=== PATIENT | female | born 1960 | race Caucasian/White ===

== ENCOUNTER 2023-03-29 09:11 | Outpatient (CLI) | payer MEDICARE, SELFPAY ==
--- NOTE | ~2023-03-29 | XR_ITS ---
EXAMINATION: XR abdomen/kub 1V INDICATION: Renal mass TECHNIQUE: Supine view of the abdomen is obtained. COMPARISON: CT, 09/04/2019 FINDINGS: The bowel gas pattern is normal. There is severe lumbar spondylosis and lumbar levoscoliosi s. The visualized lung bases are clear. There is moderate osteoarthritis of the hips. No definite jose al mass is identified although sensitivity on radiographs is low. IMPRESSION: 1. Unremarkable abdominal radiograph. Reviewed, dictated and finalized at location L. ICAL DATA MANAGER
== END 2023-03-29 09:12 | disposition home or self-care (01) ==
LOC: ANHIMG 09:17
PROVIDERS: PCP Physician Assistant; Visit Provider Urology
DX: N28.89 Other specified disorders of kidney and ureter (principal)
CPT/HCPCS: 74018

== ENCOUNTER 2024-06-06 08:17 | Outpatient (CLI) | payer MEDICARE, SELFPAY ==
--- NOTE | ~2024-06-06 | XR_ITS ---
Right Knee Technique: AP, lateral, and sunrise views were obtained. Clinical History: Arthritis Findings: No fracture or dislocation is seen. There is severe degenerative change of the medial rigo rtment with medial compartment narrowing. There is severe degenerative change of the patellofemoral c ompartment. There is moderate degenerative change of the lateral compartment.. Chondrocalcinosis of t he menisci. No joint effusion is seen. Impression: Severe degenerative change, especially in the medial and patellofemoral compartments. Reviewed, dictated and finalized at location M. Impression: Severe degenerative change, especially in the medial and patellofemoral compart ments.
--- OUTSIDE RECORDS SUMMARY | 2024-06-06 08:25 | XMS_ITS | Encounter Summary ---
Author Organization [facility] Facility Care Team Providers Care Mold Breaker Name Role Phone Tania Ware Primary Care Provider [phone] Chris Mcqueen MD Unavailable [phone] [place] MD Unavailable [phone] Encounter Details Date Type Department Care Team (Latest Contact Info) Description 03/30/2018 Orders Only [facility] Provider, MD Miguel [address] [place] [id number] Social History Tobacco Use Types Packs/Day Years Used Date Smoking Tobacco: Never Comments Unknown Sex and Gender Information Value Date Recorded Sex Assigned at Not on file 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 Historical Provider Final Res ult documented in this encounter Visit Diagnoses Not on filedocumented in this encounter Care Teams Mold Breaker Relationship Specialty Start Date End Date Tania Ware PA [address] [place] [address] PCP - General Internal Medicine 06/29/18 Chris Mcqueen MD [address] [place] [address] Referring Physician Bone Health 11/18/22 Aziza Saucedo MD [address] [place] [address] Surgeon Medical Oncology 10/14/23 documented as of this encounter
--- OUTSIDE RECORDS SUMMARY | 2024-06-06 08:26 | XMS_ITS | Referral Summary ---
Author Organization [facility] Address [address] [place] [address] Care Team Providers Care Exchange Operator Name Role Phone Tania Ware Primary Care Provider [phone] Chris Mcqueen MD Unavailable [phone] MarreroAziza rios MD Unavailable [phone] Encounters Date Type Department Care Team Description 04/21/2024 Results Follow-Up [facility] [address] [place] [phone] Tania Ware PA 04/16/2024 7:30 AM CDT Office Visit [facility] Medicine [address] [place] [phone] Tania Ware PA Medicare annual wellness visit, initial (Primary Dx); Mixed hyperlipidemia; Primary hyperparathyroidism; Gastroesophageal reflux disease without esophagitis; Hypertension, essential; Angiomyolipoma of left kidney; Breast cancer screening by mammogram; Need for pneumococcal vaccine; Vitamin D deficiency; Fatigue, unspecified type; BMI 22.0-22.9, adult from Last 3 Months Allergies Active Allergy Reactions Criticality Noted Date Comments Penicillins Unknown High 01/29/2015 As a child Sulfa (Sulfonamide Antibiotics) Rash Medium 03/11 Rash Medications famotidine (PEPCID) 20 mg tablet Take 1 tablet (20 mg total) by mouth 2 (two) times a day Active diphenhydrAMINE -acetaminophen (TYLENOL PM) 25-500 mg tablet Take 1 tablet by mouth nightly Active acetaminophen (TYLENOL) 500 mg tablet Take 1 tablet (500 mg total) by mouth as needed for pain Active amLODIPine (NORVASC) 5 mg tabletIndicatio ns:Hypertension , essential Take 1 tablet (5 mg total) by mouth daily 90 tablet 1 04/16/2024 Active rosuvastatin (CRESTOR) 10 mg tablet Take 1 tablet (10 mg total) by mouth daily 90 tablet 1 04/16/2024 Active meloxicam (MOBIC) 15 mg tablet Take 1 tablet (15 mg total) by mouth daily 90 tablet 1 04/16/2024 Active Active Problems Problem Noted Date Diagnosed Date Fatigue 04/22/2024 Assessment & Plan (04/22/2024 8:33 PM CDT): Probably multifactorial. Check labs and followup to re-evaluate BMI 22.0-22.9, adult 04/16/2024 Assessment & Plan (04/16/2024 7:59 AM CDT): Weight/BMI is in healthy range. Continue healthy lifestyle to maintain. Breast cancer screening by mammogram 04/16/2024 Assessment & Plan (04/22/2024 8:33 PM CDT): Mammogram order provided Need for pneumococcal vaccine 04/16/2024 Assessment & Plan (04/22/2024 8:33 PM CDT): Prevnar 20 updated in the office today Medicare annual wellness visit, initial 04/17/19 25 Assessment & Plan (04/22/2024 8:33 PM CDT): Encouraged healthy lifestyle, good nutrition and exercise. Encouraged Calcium and Vitamin D and weight bearing exercise for bone health. Reviewed immunizations. Reviewed age appropirate screenings. Medicare Wellness Documentation is completed within the chart Primary hyperparathyroidism 03/22/2023 Assessment & Plan (04/22/2024 8:33 PM CDT): Patient with primary hyperparathyroidism. Status post parathyroid excision x3. Calcium levels are stable. Assessment & Plan (11/21/2023 4:20 AM CDT): Status post parathyroidectomy x3. Calcium labs have stabilized. Continue per Dr. Mcqueen Assessment & Plan (08/02/2023 2:27 PM CDT): Patient with history of hyperparathyroidism. She had excision of 3 of the prior thyroid continues to follow with Dr. Mcqueen at [facility] Assessment & Plan (04/17/2023 8:16 PM CDT): Patient is following with bone metabolism hit [facility]. Has parathyroidectomy scheduled with Dr. Hernandez on 04/13. Continue per their management recommendations Mixed hyperlipidemia 05/21/2022 Assessment & Plan (04/22/2024 8:32 PM CDT): Encouraged patient to follow low fat/low chol diet like the Mediterranean diet. Increase good fats in the diet. Increase exercise. Monitor labs as needed. Continue Crestor 10 Assessment & Plan (11/21/2023 4:20 AM CDT): Encouraged patient to follow low fat/low chol diet like the Mediterranean diet. Increase good fats in the diet. Increase exercise. Monitor labs as needed. Continue Crestor 10 Assessment & Plan (08/02/2023 2:27 PM CDT): Encouraged patient to follow low fat/low chol diet like the Mediterranean diet. Increase good fats in the diet. Increase exercise. Monitor labs as needed. Continue Crestor 10 Assessment & Plan (04/17/2023 8:16 PM CDT): Encouraged patient to follow low fat/low chol diet like the Mediterranean diet. Increase good fats in the diet. Increase exercise. Monitor labs as needed. Gastroesophageal reflux disease without esophagi tis 02/06/2021 Assessment & Plan (04/22/2024 8:32 PM CDT): Continue Pepcid 20 mg Assessment & Plan (11/21/2023 4:20 AM CDT): Continue Pepcid 20 symptoms are stable Assessment & Plan (08/02/2023 2:27 PM CDT): Continue famotidine. Assessment & Plan (04/17/2023 8:15 PM CDT): Continue PPI Assessment & Plan (05/14/2022 4:19 PM CDT): Continue Pepcid Assessment & Plan (02/06/2021 11:54 AM HELPDESK TECHNICIAN): Continue Pepcid p.r.n. he OA (osteoarthritis) 02/06/2021 Assessment & Plan (02/06/2021 11:53 AM HELPDESK TECHNICIAN): Continue Mobic p.r.n. Fracture of right wrist 06/09/2020 Arthritis of carpometacarpal (CMC) joint of left thumb 09/24/2019 Arthritis of carpometacarpal (CMC) joint of righ t thumb 09/24/2019 Kidney stone 08/19/2019 Overview (08/19/2019): Continue per Dr. Xavier. Assessment & Plan (08/19/2019 8:49 PM CDT): Continue per Dr. Xavier Angiomyolipoma of left kidney 08/16/2019 Overview (08/01/2023): Incidental finding 03/2019 CT in [place] (kidney stones) 4.1 x 3.2 cm mid left kidney. Plan to repeat screening (Dr. Xavier will order) 03/2021 -- US by Dr Xavier. No significant change in the left kidney mass/probable angiomyolipoma Assessment & Plan (04/22/2024 8:32 PM CDT): Dr. Xavier continues to follow. Patient states she just had a another ultrasound but I am unable to see those results at this point. Patient reports it has grown a bit. Assessment & Plan (05/14/2022 4:18 PM CDT): Incidental finding 03/2019 CT in [place] (kidney stones) 4.1 x 3.2 cm mid left kidney. Plan to repeat screening (Dr. Xavier will order) Unsure if this was done so will try to track down and if has not been done by next visit will consider rechecking imaging for stability Assessment & Plan (08/19/2019 8:48 PM CDT): Incidental finding 03/2019 CT in [place] (kidney stones) 4.1 x 3.2 cm mid left kidney. Plan to repeat screening (Dr. Xavier will order) Hand numbness 02/04/2019 Assessment & Plan (08/19/2019 8:25 PM CDT): Persistent sxs. Didn't respond to cockup splints. Will refer to ortho hand for full workup. Assessment & Plan (02/04/2019 3:05 PM HELPDESK TECHNICIAN): Probable carpal tunnel-- Start with cockup splint. If sxs persist will consider nerve conduction vs referral to hand specialist. Start Mobic Hyperkalemia 09/25/2018 Assessment & Plan (08/02/2023 2:28 PM CDT): Monitor potassium levels as has been recently elevated. Suspect it was due to dietary fruits. Vitamin D deficiency 09/18/2018 Assessment & Plan (04/22/2024 8:32 PM CDT): Supplement Assessment & Plan (05/14/2022 4:17 PM CDT): Patient has history of vitamin-D deficiency but also is having issues with parathyroid. She has been following with Dr. Diaz. Has appointment with bone metabolism to help determine best plan of treatment for parathyroid osteoporosis vitamin-D supplementation. Assessment & Plan (07/31/2021 1:53 PM CDT): Vitamin D level is staying normal at 57 on 07/22/21 - stay off vitamin D. Assessment & Plan (01/29/2021 2:10 PM HELPDESK TECHNICIAN): Patient used to be on 5000 to 0[address]98 international units vitamin D /day She has been off treatment for 6 weeks. Vitamin D level is normal at 58 on 01/22/21 - stay off vitamin D for now. Assessment & Plan (12/15/2020 3:30 PM HELPDESK TECHNICIAN): Patient has been on and off Vitamin D using high daily dose This can contribute to high calcium. - Discontinue vitamin D for now - in the future she may need low dose vitamin D around 1000 international units /day Assessment & Plan (09/18/2018 8:46 AM CDT): Supplement. Pt would like level rechecked Osteopenia 09/18/2018 Assessment & Plan (11/21/2023 4:20 AM CDT): Continue calcium vitamin-D and exercise. Consider repeating DEXA in the next year Assessment & Plan (05/14/2022 4:18 PM CDT): Patient has history of vitamin-D deficiency but also is having issues with parathyroid. She has been following with Dr. Diaz. Has appointment with bone metabolism to help determine best plan of treatment for parathyroid osteoporosis vitamin-D supplementation. Assessment & Plan (07/31/2021 1:53 PM CDT): Patient gives history of Osteopenia She was on Fosamax for about 1 year in 2019 Bone density on 01/29/21 stable Hip -1.7 osteopenia Spine -0.1 normal - repeat bone density in 2-3 years. Assessment & Plan (01/29/2021 2:12 PM HELPDESK TECHNICIAN): Patient gives history of Osteopenia She was on Fosamax for about 1 year in 2019 She had bone density today for follow up Assessment & Plan (08/19/2019 8:32 PM CDT): Encourage calcium, vitamin D and weight bearing exercise to maintain the good bone strength. Continue Fosamax Assessment & Plan (09/18/2018 8:48 AM CDT): Managed by [employer] Dr. Sorenson. On Fosamax Grief 09/15/2018 Assessment & Plan (09/18/2018 8:47 AM CDT): Patient is adjusting. About 9 Months out from her husbands . Situational stress 09/15/2018 Assessment & Plan (02/04/2019 3:03 PM HELPDESK TECHNICIAN): Discussed considering medication---as may be contributing to the slight elevation of bp. Monitor closely as pt not interested in medication at this point. Assessment & Plan (09/18/2018 8:48 AM CDT): Adjusting without medication. Continue to monitor. Hypertension, essential 09/15/2018 Assessment & Plan (04/22/2024 8:32 PM CDT): Bp is stable/in acceptable range for any co-morbidities. Encouraged to limit sodium intake and exercise for weight control. Continue amlodipine 5 Assessment & Plan (11/09/2023 9:26 AM CDT): Bp is stable/in acceptable range for any co-morbidities. Encouraged to limit sodium intake and exercise for weight control. Continue amlodipine 5 Assessment & Plan (08/02/2023 2:26 PM CDT): Bp is stable/in acceptable range for any co-morbidities. Encouraged to limit sodium intake and exercise for weight control. Continue amlodipine 5 Assessment & Plan (04/17/2023 8:16 PM CDT): Bp is stable/in acceptable range for any co-morbidities. Encouraged to limit sodium intake and exercise for weight control. BP is still elevated. Increase the amlodipine to 5 mg daily and call in a couple of weeks with results Assessment & Plan (05/14/2022 4:42 PM CDT): This is a significant, separately identifiable problem that was evaluated and managed on the same day as the wellness exam BP is still upper normal. Will have her stop the Norvasc 2.5 and increase to 5 mg daily. She may take 2 of the 2.5 mg tablets until they are exhausted then she will be able to feel 1 of the 5 mg tablets at the pharmacy with a new prescription. Encouraged patient to call in 1-2 weeks with home bp readings. Assessment & Plan (02/06/2021 11:52 AM HELPDESK TECHNICIAN): Bp is stable/in acceptable range for any co-morbidities. Encouraged to limit sodium intake and exercise for weight control. Stable with amlodipine 2.5 mg daily Assessment & Plan (01/04/2021 10:03 PM HELPDESK TECHNICIAN): Bp is stable/in acceptable range for any co-morbidities. Encouraged to limit sodium intake and exercise for weight control. Start amlodipine 2.5 mg 1 daily. Insert drug follow-up in 2-3 weeks to recheck blood pressure. Assessment & Plan (08/19/2019 8:42 PM CDT): Stable. Continue to monitor. Assessment & Plan (02/04/2019 3:02 PM HELPDESK TECHNICIAN): bp is still upper normal but not as high has her home readings. Recommend to bring in her monitor to callibrate to make sure readings are correct. Will not start medication at this point but will monitor closely. Assessment & Plan (09/18/2018 8:47 AM CDT): Stable/normalized. No treatment needed Family history of breast cancer 04/04/2018 Assessment & Plan (08/02/2023 2:27 PM CDT): Patient's twin sister was just diagnosed with triple negative breast cancer. Her mother has also had history of breast cancer. Patient has had a lumpectomy many years ago but negative mammogram since. She is enquiring about evaluation by breast specialists and or genetics to determine her breast cancer risk and options. She would like to see Dr. Aziza Saucedo [place]. Will place referral Primary osteoarthritis of right knee 11/11/2016 Resolved Problems Problem Noted Date Diagnosed Date Resolved Date Encounter for screening mamm ogram for breast cancer 01/04/2024 04/16/2024 Breast cancer screening, high risk patient 01/04/2024 04/16/2024 Chronic pain of right knee 11/20/2023 0 04/22/2024 Assessment & Plan (11/21/2023 4:21 AM CDT): Check x-rays. Continue with the Mobic. Will follow-up pending x-ray results Right foot pain 11/20/2023 04/22/2024 Assessment & Plan (11/21/2023 4:21 AM CDT): Persistent pain on the 5th toe and bony area that continues to remain painful. Will check an x-ray but encouraged follow-up with Podiatry. They will be able to address her thickened toenails. BMI 23.0-23.9, adult 08/02/2023 025 Assessment & Plan (11/09/2023 7:37 AM CDT): Weight/BMI is in healthy range. Continue healthy lifestyle to maintain. Assessment & Plan (08/02/2023 7:49 AM CDT): Weight/BMI is in healthy range. Continue healthy lifestyle to maintain. Welcome to Medicare preventive visit 04/17/2023 08/02/2023 Assessment & Plan (04/17/2023 8:16 PM CDT): Encouraged healthy lifestyle, good nutrition and exercise. Encouraged Calcium and Vitamin D and weight bearing exercise for bone health. Reviewed immunizations. Reviewed age appropirate screenings. Medicare Wellness Documentation is completed within the chart BMI 22.0-22.9, adult 03/31/2023 024 Assessment & Plan (03/31/2023 7:51 AM HELPDESK TECHNICIAN): Weight/BMI is in healthy range. Continue healthy lifestyle to maintain. BMI 21.0-21.9, adult 05/14/2022 024 Assessment & Plan (05/14/2022 9:54 AM CDT): Weight/BMI is in healthy range. Continue healthy lifestyle to maintain. Fatigue 05/14/2022 08/02/2023 Assessment & Plan (04/17/2023 8:16 PM CDT): Probably multifactorial. Check labs and followup to re-evaluate Assessment & Plan (05/14/2022 4:19 PM CDT): Probably multifactorial. Check labs and followup to re-evaluate Diabetes mellitus screening 05/14/2022 04/17/2023 Assessment & Plan (05/14/2022 4:19 PM CDT): Check labs Lipid screening 05/14/2022 04/17/2023 Assessment & Plan (05/14/2022 4:19 PM CDT): Check labs Left hand pain 11/30/2021 04/22/2024 Otitis of right ear 06/15/2021 05/15/19 23 Assessment & Plan (06/15/2021 9:04 PM CDT): Start antibiotic, antihistamine (Claritin OR Zyrtec), Mucinex 12hour and Steroid nasal spray (Flonase). Push fluids. Rest. Supportive care. If sxs worsen or don\'t improve, pt is to followup in the office. Stop using the sweat oil and peroxide. Recheck eras in 3-4 weeks to make sure hearing is back to normal. Annual physical exam 02/06/2021 Assessment & Plan (08/02/2023 2:28 PM CDT): Encouraged healthy lifestyle, good nutrition and exercise. Encouraged Calcium and Vitamin D and weight bearing exercise for bone health. Reviewed immunizations Reviewed age appropirate screenings. Assessment & Plan (05/14/2022 4:19 PM CDT): Encouraged healthy lifestyle, good nutrition and exercise. Encouraged Calcium and Vitamin D and weight bearing exercise for bone health. Reviewed immunizations Reviewed age appropirate screenings. Assessment & Plan (02/06/2021 11:52 AM HELPDESK TECHNICIAN): Encouraged healthy lifestyle, good nutrition and exercise. Encouraged Calcium and Vitamin D and weight bearing exercise for bone health. Reviewed immunizations Reviewed age appropirate screenings. Breast cancer screening by mammogram 02/06/2021 05/14/2022 Assessment & Plan (02/06/2021 11:52 AM HELPDESK TECHNICIAN): Mammogram order provided Leg cramps 01/04/2021 04/22/2024 Assessment & Plan (01/04/2021 10:03 PM HELPDESK TECHNICIAN): Check labs BMI 22.0-22.9, adult 12/16/2020 023 Assessment & Plan (12/16/2020 7:35 AM HELPDESK TECHNICIAN): Weight/BMI is in healthy range. Continue healthy lifestyle to maintain. Hypercalcemia 12/15/2020 04/22/2024 Assessment & Plan (05/14/2022 4:18 PM CDT): Patient has history of vitamin-D deficiency but also is having issues with parathyroid. She has been following with Dr. Diaz. Has appointment with bone metabolism to help determine best plan of treatment for parathyroid osteoporosis vitamin-D supplementation. Assessment & Plan (07/31/2021 1:55 PM CDT): History of mild hypercalcemia in 2019 Calcium was found to be high at 11.1 on 11/14/20 Labs on 01/22/21 Calcium 10.3 PTH normal at 32 Normal urine calcium of 186 Normal Vitamin D of 58 Repeat labs on 07/22/21 Calcium normal at 10.0 PTH high at 67 With normal GFR and vitamin D This could be mild early hyperparathyroidism Plan: Labs reviewed and explained to patient No indication for treatment at this popint We will monitor calcium levels. Repeat labs before next visit. Assessment & Plan (01/29/2021 2:09 PM HELPDESK TECHNICIAN): History of mild hypercalcemia in 2019 Calcium was found to be high at 11.1 on 11/14/20 Patient was taken off supplements mainly vitamin D Labs on 01/22/21 Calcium 10.3 PTH normal at 32 Normal urine calcium of 186 Normal Vitamin D of 58 Plan: Labs reviewed and explained to patient Patient To stay off calcium and vitamin D We will monitor calcium levels. Repeat labs before next visit. Assessment & Plan (01/04/2021 10:03 PM HELPDESK TECHNICIAN): Continue to monitor per Dr. Diaz Assessment & Plan (12/15/2020 3:28 PM HELPDESK TECHNICIAN): History of mild hypercalcemia in 2019 Calcium was found to be high at 11.1 on 11/14/20 Repeat labs on 11/17/20 Calcium 10.4 GFR 94 Vitamin D 59 PTH of 49 This may represent mild primary hyperparathyroidism, aggravated by excess intake of vitamin D. Plan: Possible diagnosis explained to patient Discontinue vitamin D We will recheck labs in 6 weeks before next visit. Heartburn 12/15/2020 04/22/2024 Assessment & Plan (01/04/2021 10:03 PM HELPDESK TECHNICIAN): Continue the Pepcid Assessment & Plan (12/15/2020 3:32 PM HELPDESK TECHNICIAN): Chronic- related to food, but can be aggravated by hypercalcemia - continue diet - continue Pepcid as needed. Avulsion fracture of metatarsal bone 06/09/2020 11/09/2023 Closed fracture of right distal radius 04/28/2020 11/09/2023 Pain of left calf 04/20/2020 04/22/2024 Assessment & Plan (04/20/2020 1:58 PM CDT): DVT vs musculoskeletal vs compartment syndrome (less likely as no injury) other etiology Will send her for STAT hold and call venous Doppler. She was sent directly to imaging from the office. Discuss treatment options if this is a DVT including AC. ADDENDUM: Recvd verbal results. No DVT. Reviewed with patient that this is probably musculoskeletal but if sxs worsen or pain increases she needs to call back to re-evaluate. Continue MOBIC. Reviewed stretching exercises. If sxs persist, could consider PT. She voices understanding. BMI 24.0-24.9, adult 04/16/2020 021 Assessment & Plan (04/16/2020 7:50 AM HELPDESK TECHNICIAN): Weight/BMI is in healthy range. Continue healthy lifestyle to maintain. Primary osteoarthritis of right hand 10/24/2019 04/22/2024 Right wrist pain 09/24/2019 04/22/2024 Left wrist pain 09/24/2019 04/22/2024 Left carpal tunnel syndrome 09/24/2019 04/22/2024 Need for Tdap vaccination 08/19/2019 Assessment & Plan (08/19/2019 8:47 PM CDT): Updated in office today BMI 23.0-23.9, adult 09/18/2018 021 Assessment & Plan (08/19/2019 8:42 PM CDT): Weight/BMI is in healthy range. Continue healthy lifestyle to maintain. Assessment & Plan (01/29/2019 8:37 AM HELPDESK TECHNICIAN): Weight/BMI is in healthy range. Continue healthy lifestyle to maintain. Assessment & Plan (09/18/2018 7:59 AM CDT): Weight/BMI is in healthy range. Continue healthy lifestyle to maintain. Other fatigue 09/18/2018 02/04/2019 Assessment & Plan (09/18/2018 8:48 AM CDT): Check labs Lipid screening 09/18/2018 02/04/2019 Assessment & Plan (09/18/2018 8:48 AM CDT): Check labs Diabetes mellitus screening 09/18/2018 02/04/2019 Assessment & Plan (09/18/2018 8:47 AM CDT): Check labs Colon cancer screening 09/18/201802/06 Assessment & Plan (09/18/2018 8:47 AM CDT): cologuard order sent Annual physical exam 09/18/2018 019 Assessment & Plan (09/18/2018 8:46 AM CDT): Encouraged healthy lifestyle, good nutrition and exercise. Encouraged Calcium and Vitamin D and weight bearing exercise for bone health. Reviewed immunizations Reviewed age appropirate screenings. Complete Shingrix Need for shingles vaccine 09/18/2018 Assessment & Plan (09/18/2018 8:50 AM CDT): Updated in office. Fibrocystic change of breast, right 04/11/2018 01/04/2024 Current long-term use of pos tmenopausal hormone replacement therapy 03/30/2018 08/02/2023 Abnormal finding on mammography 01/28/2015 11/09/2023 Immunizations Immunization Administration Dates Next Due Influenza, Quadrivalent, Rec ombinant, Egg Free, Preservative Free, Intramuscular 12/05/2019,12/18/2017 Influenza, Quadrivalent, Spl it, Preservative Free, Intradermal 11/17/2015 Influenza, Quadrivalent, Spl it, Preservative Free, Intramuscular 11/30/2022,11/13/2018 Influenza, Trivalent, High D ose, Split, Preservative Free, Intramuscular 12/07/2023 Influenza, Trivalent, IM (MDV) 01/06/2014,2011 Influenza, Trivalent, Preser vative Free, Intramuscular 11/20/2016 Influenza, Unspecified 03/10/2022(Deferr ed: Patient Refused),03/10/2021(Deferred: Patient Refused),11/19/2020,12/05/2019, Yenni Linares ([facility]) SARS-CoV-2 Vaccination 01/02/2021, 04/11/2020 [facility] Sars-Cov-2 Bivalent V accination (12+ YRS) 11/13/2021 Pneumococcal Conjugate Pcv20 04/16/2024 Tdap 08/16/2019 ZOSTER Recombinant 09/18/2018,07/13/2018 Social History Tobacco Use Types Packs/Day Years Used Date Smoking Tobacco: Former Cigarettes 0.3 6.9 0 03/21/1973 - 1980 Passive Smoke Exposure: Past Smokeless Tobacco: Former Tobacco Cessation:Counseling Given: Not Answered Alcohol Use Standard Drinks/Week Comments Yes 0 (1 standard drink = 0.6 oz pur e alcohol) AUDIT-C Answer Date Recorded Q1: How often do you have a drink containing alcohol? 4 or more times a week 01/04/2024 Q2: How many drinks containi ng alcohol do you have on a typical day when you are drinking? 1 or 2 Q3: How often do you have si x or more drinks on one occasion? Less than monthly 01/04/2024 PHQ-2 Answer Date Recorded PHQ-2 Total Score (If total score is 3 or more points, staff should administer the PHQ-9) 0 04/16/2024 Personal Safety Answer Date Recorded Have you ever been in or are you currently in a harmful physical or emotional relationship or is someone making you feel afraid or unsafe? Denies 04/14/2023 Comments No Sex and Gender Information Value Date Recorded Sex Assigned at Not on file Legal Sex Female 5:45 AM HELPDESK TECHNICIAN Gender Identity Female 12/08/2020 6:21 AM CDT Sexual Orientation Straight 12/08/2020 6: 21 AM CDT Occupation Industry Job Start Date Job End Date Retired Not on file Not on file Not on file Last Filed Vital Signs Vital Sign Reading Time Taken Comments Blood Pressure 128/84 04/16/2024 8:20 AM CDT Pulse 61 04/16/2024 7:51 AM CDT Temperature 36.1 C (97 F) 02/10/2024 10:21 AM HELPDESK TECHNICIAN Respiratory Rate 16 02/10/2024 10:2 1 AM HELPDESK TECHNICIAN Oxygen Saturation 96% 04/16/2024 7:51 AM CDT Inhaled Oxygen Concentration - - Weight 46.1 kg (101 lb 11.2 oz) 04/16/2024 7:51 AM CDT Height 142.2 cm (4' 8 ) 04/16/2024 7:51 AM CDT Body Mass Index 22.8 04/16/2024 7:51 AM CDT Plan of Treatment Not on file Medical Devices Implanted Type Area Clinical Nursing Coordinator Device Identifier Shelf Expiration Date Model / Serial / Lot Knee Replacement Knee Pins And Plates Foot Pins And Plates Wrist [employer] Compression Ft 2.5mm 18mm Compression Self Tap Cannulated Hex 1.5 [id number] - [id number] Implanted:Qty: 1 on 12/22/2021 by Nathan Castillo MD at [facility] Left: Middle Finger [employer] [id number] / / Procedures Procedure Name Priority Date/Time Associated Diagnosis Comments VITAMIN B12 Routine 04/18/2024 6:04 AM CDT Vitamin D deficiency LIPID PANEL Routine 04/18/2024 6:04 AM CDT Mixed hyperlipidemia COMPREHENSIVE METABOLIC PANEL Routine 04/18/2024 6:04 AM CDT Mixed hyperlipidemia CBC WITH AUTO DIFFERENTIAL Routine 04/18/2024 6:04 AM CDT Fatigue, unspecified type TSH Routine 04/18/2024 6:04 AM CDT Fatigue, unspecified type VITAMIN D 25 HYDROXY Routine 04/18/2024 6:04 AM CDT Vitamin D deficiency HM MAMMOGRAPHY Routine 06/22/2023 1:59 PM CDT DEXA TBS AXIAL SKELETON BONE DENSITY 1 OR MORE SITES Schedule Routine, Read Routine (OP Routine) 11/01/2022 12:18 PM CDT Osteopenia, unspecified location HM COLONOSCOPY Routine 12/04/2021 from Last 3 Months or Most Recently Relevant to Health Maintenance Results * CBC with auto differential (04/18/2024 6:04 AM CDT) WBC 4.7 3.8 - 10.8 Thousand/u L [facility] RBC, POC 4.11 3.80 - 5.10 Million/uL [facility] Hgb 13.0 11.7 - 15.5 g/dL [facility] Hct 39.7 35.0 - 45.0 % [facility] MCV 96.6 80.0 - 100.0 fL [facility] MCH 31.6 27.0 - 33.0 pg [facility] MCHC 32.7 32.0 - 36.0 g/dL [facility] Comment: For adults, a slight decrease in the calculated MCHC value (in the range of 30 to 32 g/dL) is most likely not clinically significant; however, it should be interpreted with caution in correlation with other red cell parameters and the patient's clinical condition. Rdw 12.3 11.0 - 15.0 % [facility] Platelets 265 140 - 400 Thousand/u L [facility] MPV 11.1 7.5 - 12.5 fL [facility] Neutrophils, abs 1,795 1,500 - 7,800 cells/uL [facility] Lymphocytes, abs 2,153 850 - 3,900 cells/uL [facility] Monocyte abs 489 200 - 950 cells/uL [facility] Eosinophils, abs 193 15 - 500 cells/uL [facility] Basophils, abs 71 0 - 200 cells/uL [facility] Neutrophils 38.2 % [facility] Lymphocyte pct 45.8 % [facility] Monocytes 10.4 % [facility] Eosinophils 4.1 % [facility] Basophils 1.5 % [facility] Blood 04/18/2024 6:04 AM CDT 04/18/2024 6:04 AM CDT us Tania DOMINGUEZ LAB BLOOD ORDERABLES Final Result [facility] [address] [place] [address] * Vitamin D 25 hydroxy (04/18/2024 6:04 AM CDT) Pathologist [facility] Vitamin D 25-OH 34 30 - 100 ng/mL [facility] Comment: Vitamin D Status 25-OH Vitamin D: Deficiency: <20 ng/mL Insufficiency: 20 - 29 ng/mL Optimal: > or = 30 ng/mL For 25-OH Vitamin D testing on patients on D2-supplementation and patients for whom quantitation of D2 and D3 fractions is required, the QuestAssureD(TM) 25-OH VIT D, (D2,D3), LC/MS/MS is recommended: order code 20563 (patients >2yrs). See Note 1 Note 1 For additional information, please refer to http://education.Tradegecko/faq/RPE797 (This link is being provided for informational/ educational purposes only.) Blood 04/18/2024 6:04 AM CDT 04/18/2024 6:04 AM CDT Tania DOMINGUEZ LAB BLOOD ORDERABLES Final Result Performing Organization Address [facility] Co de Phone Number [facility] [address] [place] [address] * TSH (04/18/2024 6:04 AM CDT) TSH 2.83 0.40 - 4.50 mIU/L [facility] Blood 04/18/2024 6:04 AM CDT 04/18/2024 6:04 AM CDT Tania DOMINGUEZ LAB BLOOD ORDERABLES Final Result Performing Organization Address [facility] de Phone Number [facility] [address] [place] [address] * Vitamin B12 (04/18/2024 6:04 AM CDT) Vitamin B12 466 200 - 1,100 pg/mL [facility] Blood 04/18/2024 6:04 AM CDT 04/18/2024 6:04 AM CDT Tania DOMINGUEZ LAB BLOOD ORDERABLES Final Result Performing Organization Address [facility] Co de Phone Number [facility] [address] [place] [address] * Lipid panel (04/18/2024 6:04 AM CDT) Cholesterol 183 <200 mg/dL [facility] HDL 82 > OR = 50 mg/dL [facility] Triglycerides 67 <150 mg/dL [facility] LDL 86 mg/dL (calc) [facility] Comment: Reference range: <100 Desirable range <100 mg/dL for primary prevention; <70 mg/dL for patients with CHD or diabetic patients with > or = 2 CHD risk factors. LDL-C is now calculated using the Russell calculation, which is a validated novel method providing better accuracy than the Friedewald equation in the estimation of LDL-C. Martir MAURO et al. SAMANTHA. 2013;310(19): 3642-4544 (http://education.Tradegecko/faq/MHP693) Chol/HDL ratio 2.2 <5.0 (calc) [facility] Non-HDL, (LDL+VLDL) 101 <130 mg/dL (calc) [facility] Comment: For patients with diabetes plus 1 major ASCVD risk factor, treating to a non-HDL-C goal of <100 mg/dL (LDL-C of <70 mg/dL) is considered a therapeutic option. Blood 04/18/2024 6:04 AM CDT 04/18/2024 6:04 AM CDT Tania DOMINGUEZ LAB BLOOD ORDERABLES Final Result [facility] [address] [address] [place] [address] * Comprehensive metabolic panel (04/18/2024 6:04 AM CDT) Glucose 86 65 - 99 mg/dL [facility] Comment: Fasting reference interval BUN 14 7 - 25 mg/dL [facility] Creatinine 0.71 0.50 - 1.05 mg/dL [facility] eGFR 94 > OR = 60 mL/min/1.7 3m2 [facility] BUN/creat ratio SEE NOTE: 6 - 22 (calc) [facility] Comment: Not Reported: BUN and Creatinine are within reference range. Sodium 141 135 - 146 mmol/L [facility] Potassium, pl 4.6 3.5 - 5.3 mmol/L [facility] Chloride 105 98 - 110 mmol/L [facility] CO2 28 20 - 32 mmol/L [facility] Calcium 9.0 8.6 - 10.4 mg/dL [facility] Protein, sr 6.2 6.1 - 8.1 g/dL [facility] Albumin 4.2 3.6 - 5.1 g/dL [facility] GLOBULIN 2.0 1.9 - 3.7 g/dL (calc) [facility] Alb/glob ratio 2.1 1.0 - 2.5 (calc) [facility] Bilirubin, total 0.6 0.2 - 1.2 mg/dL [facility] Alk phos 57 37 - 153 U/L [facility] AST 19 10 - 35 U/L [facility] ALT (SGPT) 16 6 - 29 U/L [facility] Blood 04/18/2024 6:04 AM CDT 04/18/2024 6:04 AM CDT Tania DOMINGUEZ LAB BLOOD ORDERABLES Final Result [facility] [address] [facility] [place] [address] * MAMMOGRAPHY (06/22/2023 1:59 PM CDT) Mammography Normal Impressions Pretty Browning MA - 06/22/2023 1:59 PM CDT Recommend routine screening in one year. BI-RADS Category 2: Benign findings Historical Provider [facility] Edited Result - Final * Dexa TBS Axial Skeleton Bone Density 1 or more sites (11/01/2022 12:18 PM CDT) Anatomical Region Laterality Modality Wrist, Body N/A Radiographic Jaqueline ging Narrative 11/01/2022 1:56 PM CDT Patient Name: Azalia Henley Date of : 1960 Date of scan: 11/01/2022 Bone mineral density was performed on a Amadix Discovery Densitometer. Based on machine cross-calibration and precision studies the least significant changes of this densitometer is 0.024 g/cm2 at the spine, 0.020 g/cm2 at the total proximal femur, and 0.014g/cm2 at the forearm. HISTORY: This is a 62 y.o. postmenopausal female with a history of low bone mass and vitamin D deficiency. She reports that she has quit smoking. She has quit using smokeless tobacco. Previously treated with alendronate (Fosamax) and current complaint of neck pain and leg pain. INDICATIONS: Menopause status, history of prior wrist fracture, and history of low bone mass. FINDINGS: BONE MINERAL DENSITY OF THE LUMBAR SPINE Bone Mineral Density (BMD) of the lumbar spine was measured from L1-L4 and the average density was calculated to be 1.042 gm/cm2. This corresponds to a T-score (standard deviations from the mean of young adults) of 0.0. There is no previous study available for comparison. BONE MINERAL DENSITY OF THE PROXIMAL FEMUR Bone Mineral Density (BMD) of the left hip total was found to be 0.816 gm/cm2. This corresponds to a T-score standard deviations from the mean of young adults of -1.0. Femoral neck is 0.662 gm/cm2 with a T-score (standard deviations from the mean of young adults) of -1.7. There is no previous study available for comparison. BONE MINERAL DENSITY OF THE FOREARM Bone Mineral density (BMD) of the left proximal 1/3 of the radius measures 0.558 gm/cm2. This corresponds to a T-score (standard deviations from the mean of young adults) of -2.3. There is no previous study available for comparison. A forearm bone density study was performed in addition to the routine study because of severe degenerative disease and severe scoliosis. SUMMARY: Bone mineral density shows evidence of low bone mass at the proximal femur and forearm and moderately increased fracture risk (Osteopenia). The lumbar spine Trabecular Bone Score is 1.505 which suggests normal bone microarchitecture, compared to the general population. Final decisions regarding diagnostic or therapeutic recommendations should include BMD, TBS, additional clinical risk factors as well the clinical context of the patient. Please see attached TBS results for further details. ADDITIONAL COMMENTS: Postmenopausal Women and Men Over 50: Diagnostic criteria: Osteoporosis: BMD at or below -2.5 T-score; Osteopenia (low bone mass): BMD between -1.0 and -2.5 T-score. If the patient has a history of a fragility fracture, a fracture that occurred with trauma equivalent to a fall from a standing position or less, then the diagnosis is osteoporosis regardless of bone density. The history and data sections of the bone mineral density scan were prepared by Shantelle Lucero (R)(CBDT) who is accredited by the International Society of Clinical Densitometry. The overall patient assessment and scan interpretation were performed by Chris Mcqueen M.D. who is certified by the International Society of Clinical Densitometry. [id number] us Chris Mcqueen MD IMG DXA PROCEDURES Final Result * HM COLONOSCOPY (12/04/2021) us Bruce Phan MD HEALTH MAINTENANCE Edited Res ult - Final from Last 3 Months or Most Recently Relevant to Health Maintenance Insurance T MEDICARE GOLD AET[employer] MEDICARE GOLD [facility] MEDICARE [facility] Advance Directives For more information, please contact: [phone] * Full Code (Latest Code Status on File) Date Activated Date Inactivated Comments 04/14/2023 12:48 PM 04/15/2023 4:05 PM Care Teams Exchange Operator Relationship Specialty Start Date End Date Tania Ware PA [address] [place] [address] PCP - General Internal Medicine 06/29/18 Chris Mcqueen MD [address] [facility] [address] [place] [address] Referring Physician Bone Health 11/18/22 Aziza Saucedo MD [address] [place] [address] Surgeon Medical Oncology 10/14/23
--- OUTSIDE RECORDS SUMMARY | 2024-06-06 08:26 | XMS_ITS | Encounter Summary ---
Author Organization [facility] Address [address] [place] [address] Phone Care Team Providers Care Software Tools Engineer Name Role Phone Tania Ware Primary Care Provider [phone] Chris Mcqueen MD Unavailable [phone] Aziza Saucedo MD Unavailable [phone] Encounter Details Date Type Department Care Team (Late st Contact Info) Description 03/16/2022 Orders Only [facility] Scanning, Provider Social History Tobacco Use Types Packs/Day Years Used Date Smoking Tobacco: Former Smokeless Tobacco: Former Alcohol Use Standard Drinks/Week Comments Yes 0 (1 standard drink = 0.6 oz pur e alcohol) AUDIT-C Answer Date Recorded Q1: How often do you have a drink containing alc ohol? 2-3 times a week 12/22/2021 Q2: How many drinks containi ng alcohol do you have on a typical day when you are drinking? 1 or 2 12/22/2021 Q3: How often do you have si x or more drinks on one occasion? 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 Not on file Not on file documented as of this encounter Plan of Treatment Not on file documented as of this encounter Procedures Procedure Name Priority Date/Time Associated Diagnosis Comments SCAN - RADIOLOGY/IMAGING 03/16/2022 documented in this encounter Results * SCAN - RADIOLOGY/IMAGING (03/16/2022) Anatomical Region Laterality Modality Other us Provider Scanning Final Result documented in this encounter Visit Diagnoses Not on filedocumented in this encounter Care Teams Software Tools Engineer Relationship Specialty Start Date End Date Tania Ware PA [address] [place] [address] PCP - General Internal Medicine 06/29/18 Chris Mcqueen MD [address] [place] [address] Referring Physician Bone Health 11/18/22 Aziza Saucedo MD [address] [place] [address] Surgeon Medical Oncology 10/14/23 documented as of this encounter
--- OUTSIDE RECORDS SUMMARY | 2024-06-06 08:26 | XMS_ITS | Encounter Summary ---
Author Organization [facility] Care Team Providers Care Candy Decorator Name Role Phone Tania Ware Primary Care Provider [phone] Chris Mcqueen MD Unavailable [phone] ReftonAziza rios MD Unavailable Encounter Details Date Type Department Care Team (Latest Contact Info) Description 04/11/2018 Orders Only [facility] Provider, MD Miguel [address] [place] [address] Social History Tobacco Use Types Packs/Day Years Used Date Smoking Tobacco: Never Comments Unknown Sex and Gender Information Value Date Recorded Sex Assigned at Not on file Legal Sex Female 5:45 AM MEAT BLENDER Gender Identity Female 12/08/2020 6:21 AM CDT Sexual Orientation Straight 12/08/2020 6: 21 AM CDT documented as of this encounter Plan of Treatment Not on file documented as of this encounter Procedures Procedure Name Priority Date/Time Associated Diagnosis Comments PROCEDURE - RESULT 04/12/2018 12 :00 AM MEAT BLENDER documented in this encounter Results * PROCEDURE - RESULT (04/12/2018 12:00 AM MEAT BLENDER) Narrative 04/12/2018 12:00 AM MEAT BLENDER Ordered by an unspecified provider. Historical Provider Final Res ult documented in this encounter Visit Diagnoses Not on filedocumented in this encounter Care Teams Candy Decorator Relationship Specialty Start Date End Date Tania Ware PA [address] [place] [address] PCP - General Internal Medicine 06/29/18 Chris Mcqueen MD [address] [place] [address] Referring Physician Bone Health 11/18/22 Aziza Saucedo MD [address] [place] [address] Surgeon Medical Oncology 10/14/23 documented as of this encounter
--- OUTSIDE RECORDS SUMMARY | 2024-06-06 08:26 | XMS_ITS | Clinical Summary ---
Author Organization [facility] Address [address] [place] [address] Care Team Providers Care Information Coder Name Role Phone Tania Ware PA-C Primary Care Provider [phone] Allergies Active Allergy Reactions Criticality Noted Date Comments Penicillins Unknown,Rash Low 01/29/2015 Sulfa (Sulfonamide Antibiotics) Unknown,Rash Low Medications YUVAFEM 10 mcg tablet 9 Active alendronate (FOSAMAX) 70 mg tablet 8 Active alendronate (FOSAMAX) 70 mg tablet 8 Active IMVEXXY MAINTENANCE PACK 10 mcg Insert INSERT 1 VAGINALLY TWO TIMES PER WEEK 9 9 Active estradiol (IMVEXXY STARTER PACK) 10 mcg insert, dose pack INSERT ONCE CAPSULE VAGINALLY ONCE DAILY FOR 2 WEEKS THEN USE TWICE A WEEK THEREAFTER FOR MAINTENANCE 9 Active IMVEXXY STARTER PACK 10 mcg insert, dose pack INSERT ONCE CAPSULE VAGINALLY ONCE DAILY FOR 2 WEEKS THEN USE TWICE A WEEK THEREAFTER FOR MAINTENANCE 0 9 Active meloxicam (MOBIC) 7.5 mg tablet 7.5 mg. 7 Active Cholecalciferol, Vitamin D3, 10,000 unit Capsule 10,000 Units. Active Active Problems Problem Noted Date Diagnosed Date Fibrocystic change of breast, right 04/11/2018 Family history of breast cancer 04/04/2018 Current long-term use of pos tmenopausal hormone replacement therapy 03/30/2018 Resolved Problems Problem Noted Date Diagnosed Date Resolved Date Abnormal mammogram of right breast 03/30/2018 05/12/2018 Sign and symptom in breast 03/30/2018 0 04/11/2018 Abnormal ultrasound of breast 03/30/2018 04/11/2018 Social History Tobacco Use Types Packs/Day Years Used Date Smoking Tobacco: Former Cigarettes 0.5 6 0 07/08/1974 - 07/08/1980 Smokeless Tobacco: Never Alcohol Use Standard Drinks/Week Comments Yes 2 (1 standard drink = 0.6 oz pur e alcohol) Comments No Sex and Gender Information Value Date Recorded Sex Assigned at Not on file Legal Sex Female 3:31 PM JEEP MECHANIC Gender Identity Not on file Sexual Orientation Not on file Last Filed Vital Signs Vital Sign Reading Time Taken Comments Blood Pressure 128/74 10/12/2018 9:24 AM CDT Pulse 76 10/12/2018 9:24 AM CDT Temperature 36.7 C (98 F) 10/12/2018 9:24 AM CDT Respiratory Rate - - Oxygen Saturation 97% 10/12/2018 9:24 AM CDT Inhaled Oxygen Concentration - - Weight 50 kg (110 lb 4.8 oz) 10/12/2018 9:24 AM CDT Height 148.6 cm (4' 10.5 ) 10/12/2018 9:24 AM CD T Body Mass Index 22.66 10/12/2018 9:24 AM CDT Plan of Treatment Health Maintenance Due Date Last Done Comments DTAP/TDAP/TD VACCINES (1 - Tdap) 1977 COLORECTAL SCREENING 2003 Colorectal Cancer Screening 2003 FIT-DNA Q 3 years 2003 FIT/FOBT Q 1 year 2003 Flex Sig/CT Colonography Q 5 years 2003 PNEUMOCOCCAL VACCINE 50+ YEA RS (1 of 1 - PCV) 2008 ZOSTER VACCINE (1 of 2) 2008 BREAST CANCER SCREENING 02/23/2019 02/23/19 19, 02/18/2016, 02/11/2016, Additional history exists OSTEOPOROSIS SCREENING 2023 INFLUENZA VACCINE (#1) 2023 11/17/2015 RSV VACCINE (60+ or ) (1 - 1-dose 75+ series) 2033 Procedures Procedure Name Priority Date/Time Associated Diagnosis Comments MAMMO SCREENING BILAT Routine 02/23/2018 from Last 3 Months or Most Recently Relevant to Health Maintenance Results * MAMMO SCREENING BILAT (02/23/2018) Anatomical Region Laterality Modality Breast Bilateral Mammography us Abstract Provider MAMMO ORDERABLES Final Result from Last 3 Months or Most Recently Relevant to Health Maintenance Insurance [facility] BLUE ACCESS CHOICE Care Teams Information Coder Relationship Specialty Start Date End Date Tania Ware PA-C [address] [facility] [address] [place] [address] PCP - General Physician Dialysis Chief Equipment Technician 03/30/18
--- OUTSIDE RECORDS SUMMARY | 2024-06-06 08:26 | XMS_ITS | Encounter Summary ---
Author Organization [facility] Address [address] [place] [address] Phone Care Team Providers Care Tube Cleaner Name Role Phone Tania Ware Primary Care Provider [phone] Chris Mcqueen MD Unavailable [phone] [place] FordAziza rios MD Unavailable [phone] Encounter Details Date Type Department Care Team (Late st Contact Info) Description 03/22/2023 Documentation [facility] [address] [facility] [address] [place] [address] [place] [address] Eduard Singer, B.A. Social History Tobacco Use Types Packs/Day Years Used Date Smoking Tobacco: Former Smokeless Tobacco: Former Alcohol Use Standard Drinks/Week Comments Yes 0 (1 standard drink = 0.6 oz pur e alcohol) AUDIT-C Answer Date Recorded Q1: How often do you have a drink containing alcohol? 4 or more times a week 03/25/2023 Q2: How many drinks containi ng alcohol do you have on a typical day when you are drinking? 1 or 2 Q3: How often do you have si x or more drinks on one occasion? 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 4 or more times a week 03/25/2023 3:52 PM Sasha Ochoa RN Q2: How many drinks containing alcohol do you have on a typical day when you are drinking? 1 or 2 03/25/2023 3:52 PM Dana Ochoa RN Q3: How often do you have six or more drinks on one occasion? Never 03/25/2023 3:52 PM Dana Ochoa RN documented as of this encounter Plan of Treatment Not on file documented as of this encounter Visit Diagnoses Not on filedocumented in this encounter Care Teams Tube Cleaner Relationship Specialty Start Date End Date Tania Ware PA [address] [place] [address] PCP - General Internal Medicine 06/29/18 Chris Mcqueen MD [address] [place] [address] Referring Physician [facility] 11/18/22 Aziza Saucedo MD [address] [place] [address] Surgeon Medical Oncology 10/14/23 documented as of this encounter
--- OUTSIDE RECORDS SUMMARY | 2024-06-06 08:26 | XMS_ITS | Encounter Summary ---
Author Organization [facility] Address [address] [place] [address] Care Team Providers Care Surety Bond Agent Name Role Phone Tania Ware Primary Care Provider [phone] Chris Mcqueen MD Unavailable [phone] [place] MD Unavailable [phone] Encounter Details Date Type Department Care Team (Late st Contact Info) Description 04/21/2024 Results Follow-Up [facility] Medical [facility] Family Medicine [address] [place] [address] Tania Ware PA [address] [place] [address] Social History Tobacco Use Types Packs/Day Years Used Date Smoking Tobacco: Former Cigarettes 0.3 6.9 0 03/21/1973 - 1980 Passive Smoke Exposure: Past Smokeless Tobacco: Former Alcohol Use Standard Drinks/Week [...] on file Legal Sex Female 5:45 AM WAITER/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 BUFFET Gender Identity Female 12/08/2020 6:21 AM CDT Sexual Orientation Straight 12/08/2020 6: 21 AM CDT Occupation Industry Job Start Date Job End Date Retired Not on file Not on file Not on file documented as of this encounter Plan of Treatment Not on file documented as of this encounter Visit Diagnoses Not on filedocumented in this encounter Care Teams Surety Bond Agent Relationship Specialty Start Date End Date Tania Ware PA [address] [place] [address] PCP - General Internal Medicine 06/29/18 Chris Mcqueen MD [address] [place] [address] Referring Physician Bone Health 11/18/22 Aziza Saucedo MD [address] [place] [address] Surgeon Medical Oncology 10/14/23 documented as of this encounter
--- OUTSIDE RECORDS SUMMARY | 2024-06-06 08:26 | XMS_ITS | Clinical Summary ---
Author Organization [facility] Address [address] [place] [address] Care Team Providers Care Business Insight And Analytics Manager Name Role Phone Tania Ware Primary Care Provider [phone] Chris Mcqueen MD Unavailable [phone] SherylAziza MD Unavailable [phone] Allergies Active Allergy Reactions Criticality Noted Date [...] today Medicare annual wellness visit, initial 04/17/19 Assessment & Plan (04/22/2024 8:33 PM CDT): [...] continues to follow with Dr. Mcqueen at [facility] Assessment & Plan (04/17/2023 8:16 PM CDT): Patient is following with bone metabolism hit [facility]. Has parathyroidectomy scheduled with Dr. Hernandez on [...] Pepcid Assessment & Plan (02/06/2021 11:54 AM READING INTERVENTIONIST): Continue Pepcid p.r.n. he OA (osteoarthritis) 02/06/2021 Assessment & Plan (02/06/2021 11:53 AM READING INTERVENTIONIST): Continue Isaias reina. Fracture of right wrist 06/09/2020 Arthritis of carpometacarpal (CMC) joint of left thumb 09/24/2019 Arthritis of carpometacarpal (CMC) joint of righ t thumb 09/24/2019 Kidney stone 08/19/2019 Overview (08/19/2019): Continue per Dr. Xavier. Assessment & Plan (08/19/2019 8:49 PM CDT): Continue per Dr. Xavier Angiomyolipoma of left kidney 08/16/2019 Overview (08/01/2023): Incidental finding 03/2019 CT in [place] (kidney stones) 4.1 x 3.2 cm mid [...] PM CDT): Incidental finding 03/2019 CT in [place] (kidney stones) 4.1 x 3.2 cm mid left kidney. Plan to repeat screening (Dr. Xavier will order) Unsure if this was done so will try to track down and if has not been done by next visit will consider rechecking imaging for stability Assessment & Plan (08/19/2019 8:48 PM CDT): Incidental finding 03/2019 CT in [place] (kidney stones) 4.1 x 3.2 cm mid left kidney. Plan to repeat screening (Dr. Xavier will order) Hand numbness 02/04/2019 Assessment & Plan (08/19/2019 8:25 PM CDT): Persistent sxs. Didn't respond to cockup splints. Will refer to ortho hand for full workup. Assessment & Plan (02/04/2019 3:05 PM READING INTERVENTIONIST): Probable carpal tunnel-- Start with cockup splint. [...] D. Assessment & Plan (01/29/2021 2:10 PM READING INTERVENTIONIST): Patient used to be on 5000 to 26413 international units vitamin D /day She has been off treatment for 6 weeks. Vitamin D level is normal at 58 on 01/22/21 - stay off vitamin D for now. Assessment & Plan (12/15/2020 3:30 PM READING INTERVENTIONIST): Patient has been on and off Vitamin [...] years. Assessment & Plan (01/29/2021 2:12 PM READING INTERVENTIONIST): Patient gives history of Osteopenia She was on Fosamax for about 1 year in 2019 She had bone density today for follow up Assessment & Plan (08/19/2019 8:32 PM CDT): Encourage calcium, vitamin D and weight bearing exercise to maintain the good bone strength. Continue Fosamax Assessment & Plan (09/18/2018 8:48 AM CDT): Managed by ETL SOFTWARE ENGINEER Dr. Sorenson. On Fosamax Grief 09/15/2018 Assessment & Plan (09/18/2018 8:47 AM CDT): Patient is adjusting. About 9 Months out from her husbands . Situational stress 09/15/2018 Assessment & Plan (02/04/2019 3:03 PM READING INTERVENTIONIST): Discussed considering medication---as may be contributing to [...] readings. Assessment & Plan (02/06/2021 11:52 AM READING INTERVENTIONIST): Bp is stable/in acceptable range for any co-morbidities. Encouraged to limit sodium intake and exercise for weight control. Stable with amlodipine 2.5 mg daily Assessment & Plan (01/04/2021 10:03 PM READING INTERVENTIONIST): Bp is stable/in acceptable range for any co-morbidities. Encouraged to limit sodium intake and exercise for weight control. Start amlodipine 2.5 mg 1 daily. Insert drug follow-up in 2-3 weeks to recheck blood pressure. Assessment & Plan (08/19/2019 8:42 PM CDT): Stable. Continue to monitor. Assessment & Plan (02/04/2019 3:02 PM READING INTERVENTIONIST): bp is still upper normal but not [...] 024 Assessment & Plan (03/31/2023 7:51 AM READING INTERVENTIONIST): Weight/BMI is in healthy range. Continue healthy [...] 04/22/2024 Otitis of right ear 06/15/2021 05/15/19 Assessment & Plan (06/15/2021 9:04 PM CDT): [...] screenings. Assessment & Plan (02/06/2021 11:52 AM READING INTERVENTIONIST): Encouraged healthy lifestyle, good nutrition and exercise. Encouraged Calcium and Vitamin D and weight bearing exercise for bone health. Reviewed immunizations Reviewed age appropirate screenings. Breast cancer screening by mammogram 02/06/2021 05/14/2022 Assessment & Plan (02/06/2021 11:52 AM READING INTERVENTIONIST): Mammogram order provided Leg cramps 01/04/2021 04/22/2024 Assessment & Plan (01/04/2021 10:03 PM READING INTERVENTIONIST): Check labs BMI 22.0-22.9, adult 12/16/2020 023 Assessment & Plan (12/16/2020 7:35 AM READING INTERVENTIONIST): Weight/BMI is in healthy range. Continue healthy [...] visit. Assessment & Plan (01/29/2021 2:09 PM READING INTERVENTIONIST): History of mild hypercalcemia in 2019 Calcium [...] visit. Assessment & Plan (01/04/2021 10:03 PM READING INTERVENTIONIST): Continue to monitor per Dr. Diaz Assessment & Plan (12/15/2020 3:28 PM READING INTERVENTIONIST): History of mild hypercalcemia in 2019 Calcium [...] 04/22/2024 Assessment & Plan (01/04/2021 10:03 PM READING INTERVENTIONIST): Continue the Pepcid Assessment & Plan (12/15/2020 3:32 PM READING INTERVENTIONIST): Chronic- related to food, but can be [...] 021 Assessment & Plan (04/16/2020 7:50 AM READING INTERVENTIONIST): Weight/BMI is in healthy range. Continue healthy [...] maintain. Assessment & Plan (01/29/2019 8:37 AM READING INTERVENTIONIST): Weight/BMI is in healthy range. Continue healthy [...] 08/02/2023 Abnormal finding on mammography 01/28/2015 11/09/2023 Encounters Date Type Department Care Team Description 04/21/2024 Results Follow-Up [address] [place] [id number] Tania Ware PA 04/16/2024 7:30 AM CDT Office Visit [facility] [address] [place] [address] Tania Ware PA Medicare annual wellness visit, initial (Primary Dx); Mixed hyperlipidemia; Primary hyperparathyroidism; Gastroesophageal reflux disease without esophagitis; Hypertension, essential; Angiomyolipoma of left kidney; Breast cancer screening by mammogram; Need for pneumococcal vaccine; Vitamin D deficiency; Fatigue, unspecified type; BMI 22.0-22.9, adult from Last 3 Months Immunizations Immunization Administration Dates Next Due Influenza, [...] Yenni Linares (J&J) SARS-CoV-2 Vaccination 01/02/2021, 04/11/2020 Go Try It On Sars-Cov-2 Bivalent V accination (12+ YRS) 11/13/2021 Pneumococcal Conjugate Pcv20 04/16/2024 Tdap 08/16/2019 ZOSTER Recombinant 09/18/2018,07/13/2018 Surgical History Surgery Date Site/Laterality Comments REPLACEMENT TOTAL KNEE 02/07/2006 - 02/06/2007 Left ROTATOR CUFF REPAIR 02/07/2006 - 02/06/2007 Right HAND SURGERY 11/13/2019 Bilateral rt long finger dip fusion and lt ctr FOOT FRACTURE SURGERY 01/31/2020 Right WRIST FRACTURE SURGERY 05/06/2020 Right VAGINAL DELIVERY X2 ARTHRODESIS 12/22/2021 Left LEFT LONG FINGER DIP JOINT ARTHRODESIS COLONOSCOPY last one in 2022 FRACTURE SURGERY 01/31/2020 and 05/01/2020 JOINT REPLACEMENT 01/2007 PARATHYROIDECTOMY 04/08/2023 - 05/08/2023 Medical History Medical History Date Comments Encounter for other orthoped ic aftercare Orthopedic aftercare - (Adde d by TW Conv) GERD (gastroesophageal reflu x disease) Chronic pain disorder OSTEOARTHR ITIS Hypertension, essential Arthritis 25 years Kidney stone had one 03/2019 Hyperthyroidism Hypercholesteremia Family History Medical History Relation Name Comments COPD Father Efraín Odom Diabetes Father Efraín Odom Heart disease Father Efraín Odom Hyperlipidemia Father Efraín Odom Hypertension Father Efraín Odom Lung cancer Father Efraín Odom Obesity Father Efraín Odom Pancreatic cancer Maternal Grandfather Arthritis Maternal Grandmother Gretta Duarte Breast cancer Mother Elza Odom Family hist ory of malignant neoplasm of breast - (Added by TW Conv)/Adenocarcinoma of breast - (Added by TW Conv) Depression Mother Elza Odom Obesity Mother Elza Odom Thyroid disease Mother Elza Odom Breast cancer Mother's Sister BRCA1 Negative Sister Frances BRCA2 Negative Sister Frances Triple negative breast cancer (HCC) Sister Frances identical twin Relation Name Status Comments Father Efraín Odom Maternal Grandfather Maternal Grandmother Gretta Duarte Mother Elza Odom Mother's Sister Alive Sister Frances Alive Social History Tobacco Use Types Packs/Day Years [...] on file Legal Sex Female 5:45 AM READING INTERVENTIONIST Gender Identity Female 12/08/2020 6:21 AM CDT Sexual Orientation Straight 12/08/2020 6: 21 AM CDT Occupation Industry Job Start Date Job End Date Retired Not on file Not on file Not on file Obstetrics History Last Filed Vital Signs Vital Sign Reading Time Taken Comments Blood Pressure 128/84 04/16/2024 8:20 AM CDT Pulse 61 04/16/2024 7:51 AM CDT Temperature 36.1 C (97 F) 02/10/2024 10:21 AM READING INTERVENTIONIST Respiratory Rate 16 02/10/2024 10:2 1 AM READING INTERVENTIONIST Oxygen Saturation 96% 04/16/2024 7:51 AM CDT Inhaled Oxygen Concentration - - Weight 46.1 kg (101 lb 11.2 oz) 04/16/2024 7:51 AM CDT Height 142.2 cm (4' 8 ) 04/16/2024 7:51 AM CDT Body Mass Index 22.8 04/16/2024 7:51 AM CDT Plan of Treatment Health Maintenance Due Date Last Done Comments Hepatitis C Screening 1960 Hepatitis B Screening 1978 Covid-19 Vaccine (2023-03 5 season) 2023 11/13/2021, 01/02/2021, 04/11/2020 Breast Cancer Screening-Mammogram 06/21/2024 06/22/2023, 04/20/2022, 03/09/2021, Additional history exists Osteoporosis Screening-Bone Density Scan 11/01/2024 11/01/2022, 01/29/2021 Depression Screening 04/16/2025 04/16/2024, 11/09/2023, 08/02/2023, Additional history exists Fall Risk Assessment 04/16/2025 04/16/2024, 08/02/2023, 04/15/2023, Additional history exists Well Visit 65+ 04/16/2025 04/16/2024, 07/09, 03/31/2023, Additional history exists DTaP/Tdap/Td Vaccine (2 - Td or Tdap) 08/15/2029 08/16/2019 Colon Cancer Screening-Colonoscopy 12/05/2031 12/04/2021 Zoster Vaccine Completed 09/18/2018, 07/13/2018 Colon Cancer Screening-DNA Stool Discontinued 12/04/2021, 11/04/2021, 10/08/2018, Additional history exists Influenza Vaccine Completed 12/07/2023, , 11/19/2020, Additional history exists Pneumococcal vaccine 65+ Completed 04/16/2024 Medical Devices Implanted Type Area Solar Development Engineer Device Identifier Shelf Expiration Date Model / Serial / Lot Knee Replacement Knee Pins And Plates Foot Pins And Plates Wrist [employer] Compression Ft 2.5mm 18mm Compression Self Tap Cannulated Hex 1.5 [id number] - [id number] Implanted:Qty: 1 on 12/22/2021 by Nathan Castillo MD at [facility] Left: Middle Finger [employer] [id number] [...] BLOOD ORDERABLES Final Result Performing Organization Address [facility] Co de Phone Number [facility] [address] [place] [address] * Vitamin D 25 hydroxy (04/18/2024 6:04 AM CDT) [facility] Vitamin D 25-OH 34 30 - 100 ng/mL [facility] Comment: Vitamin D Status 25-OH Vitamin D: Deficiency: <20 ng/mL Insufficiency: 20 - 29 ng/mL Optimal: > or = 30 ng/mL For 25-OH Vitamin D testing on patients on D2-supplementation and patients for whom quantitation of D2 and D3 fractions is required, the QuestAssureD(TM) 25-OH VIT D, (D2,D3), LC/MS/MS is recommended: order code 40765 (patients >2yrs). See Note 1 Note 1 For additional information, please refer to http://education.GeoOptics/faq/EVZ986 (This link is being provided for informational/ educational purposes only.) Blood 04/18/2024 6:04 AM CDT 04/18/2024 6:04 AM CDT Tania DOMINGUEZ LAB BLOOD ORDERABLES Final Result Performing Organization Address [facility] Co de Phone Number [facility] [address] [place] [address] * TSH (04/18/2024 6:04 AM CDT) [facility] TSH 2.83 0.40 - 4.50 mIU/L [facility] Blood 04/18/2024 6:04 AM CDT 04/18/2024 6:04 AM CDT Tania DOMINGUEZ LAB BLOOD ORDERABLES Final Result Performing Organization Address [facility] Co de Phone Number [facility] [address] [place] [address] * Vitamin B12 (04/18/2024 6:04 AM CDT) Pathologist [facility] Vitamin B12 466 200 - 1,100 pg/mL [facility] Blood 04/18/2024 6:04 AM CDT 04/18/2024 6:04 AM CDT Tania DOMINGUEZ LAB BLOOD ORDERABLES Final Result Performing Organization Address [facility] de Phone Number [facility] [address] [place] [address] * Lipid panel (04/18/2024 6:04 AM CDT) Pathologist [facility] Cholesterol 183 <200 mg/dL [facility] [...] LDL-C. Martir MAURO et al. SAMANTHA. 2013;310(19): 1440-7140 (http://education.RehabDev.[employer]/faq/DYB327) Chol/HDL ratio 2.2 <5.0 (calc) [facility] Non-HDL, (LDL+VLDL) 101 <130 mg/dL (calc) [facility] Comment: For patients with diabetes plus 1 major ASCVD risk factor, treating to a non-HDL-C goal of <100 mg/dL (LDL-C of <70 mg/dL) is considered a therapeutic option. Blood 04/18/2024 6:04 AM CDT 04/18/2024 6:04 AM CDT Tania DOMINGUEZ LAB BLOOD ORDERABLES Final Result [facility] [address] [facility] [place] [address] * Comprehensive metabolic panel (04/18/2024 6:04 AM CDT) Glucose 86 65 - 99 mg/dL [facility] Comment: Fasting reference interval BUN 14 7 - 25 mg/dL [facility] Creatinine 0.71 0.50 - 1.05 mg/dL [facility] eGFR 94 > OR = 60 mL/min/1.7 3m2 [facility] BUN/creat ratio SEE NOTE: 6 (calc) [facility] Comment: Not Reported: [...] LAB BLOOD ORDERABLES Final Result [facility] [address] [facility] [place] [address] * MAMMOGRAPHY (06/22/2023 1:59 PM CDT) Mammography Normal Impressions Pretty Browning MA - 06/22/2023 1:59 PM CDT Recommend routine screening in one year. BI-RADS Category 2: Benign findings Historical Provider HEALTH MAINTENANCE Edited Result - Final * Dexa TBS Axial Skeleton Bone Density 1 or more sites (11/01/2022 12:18 PM CDT) Anatomical Region Laterality Modality Wrist, Body N/A Radiographic Jaqueline ging Narrative 11/01/2022 1:56 PM CDT Patient Name: Azalia Henley Date of : 1960 Date of scan: 11/01/2022 Bone mineral density was performed on a [employer] Discovery Densitometer. Based on machine cross-calibration and [...] by the International Society of Clinical Densitometry. [id number] us Chris Mcqueen MD IMG DXA PROCEDURES Final Result * HM COLONOSCOPY (12/04/2021) us Bruce Phan MD HEALTH MAINTENANCE Edited Res ult - Final from Last 3 Months or Most Recently Relevant to Health Maintenance Insurance AETNA MEDICARE GOLD AETNA MEDICARE GOLD AETNA MEDICARE GOLD Advance Directives For more information, please contact: [phone] * Full Code (Latest Code Status on File) Date Activated Date Inactivated Comments 04/14/2023 12:48 PM 04/15/2023 4:05 PM Care Teams Business Insight And Analytics Manager Relationship Specialty Start Date End Date Tania Ware PA [address] [place] [address] PCP - General Internal Medicine 06/29/18 Chris Mcqueen MD [address] [place] [address] Referring Physician Bone Health 11/18/22 Aziza Saucedo MD [address] [place] [address] Surgeon Medical Oncology 10/14/23
== END 2024-06-06 08:18 | disposition home or self-care (01) ==
PROVIDERS: PCP Physician Assistant; Visit Provider Orthopaedic Surgery
DX: M17.11 Unilateral primary osteoarthritis, right knee (principal)
CPT/HCPCS: 73564

== ENCOUNTER 2024-08-03 10:38 | Outpatient (CLI) | payer MEDICARE, SELFPAY ==
[2024-08-03 11:07] LABS: Hematocrit 40.8 % (37.0-47.0); Hemoglobin 13.1 g/dL (12.0-15.0)
--- NOTE | 2024-08-03 11:09 | ECG_ITS ---
Test Date: 2024-08-03 11:16:43 Measurements Intervals [place] Rate: 62 P: 32 VA: 131 QRS: 16 QRSD: 85 T: 15 QT: 405 QTc: 413 Interpretive Statements SINUS RHYTHM MINIMAL Q WAVES- HIGH LATERAL LEADS BORDERLINE ST ABNORMALITY- ANTEROLAT/INF LEADS BASELINE ARTIFACT- I, II, III, AVR, AVL, AVF, V1-V6 BORDERLINE ECG No previous ECG available for comparison Electronically Signed On 08-03-2024 11:31:46 CDT by Guy Lara D.O.
[2024-08-03 11:19] LABS: Albumin Level 4.4 g/dL (3.5-5.1); Estimated Glomerular Filt Rate > 60; Glucose 87 mg/dL (65-110)
== END 2024-08-03 10:39 | disposition home or self-care (01) ==
PROVIDERS: PCP Physician Assistant; Visit Provider Orthopaedic Surgery
DX: E78.5 Hyperlipidemia, unspecified (principal); M17.11 Unilateral primary osteoarthritis, right knee
CPT/HCPCS: 36415; 82040; 82565; 82947; 85014; 85018; 93005

== ENCOUNTER 2024-10-09 09:29 | Outpatient (CLI) | payer MEDICARE, SELFPAY ==
--- NOTE | ~2024-10-09 | CT_ITS ---
EXAMINATION: CT abdomen wo/w con DATE: 10/09/2024 09:57 INDICATION: Left renal mass TECHNIQUE: Computed tomography (CT) of the abdomen and pelvis was performed without and with intravenous contrast. The dose-length product was 269.47 mGy- cm. Automated exposure control and iterative reconstruction technique were employed. COMPARISON: CT dated 09/04/2019 FINDINGS: There is bilateral atelectasis/scarring of the lung bases. No focal consolidation. Heart size normal. There is atherosclerosis of the aorta. There are multiple liver cysts. The spleen, pancreas, adrenal glands are unremarkable. There is a right renal cysts. Nonobstructive bowel gas pattern with moderate colonic fecal loading. There is a mass of the left kidney containing macroscopic fat measuring 3.5 cm greatest dimension, consistent with benign angiomyolipoma. There is moderate-severe lower thoracic and lumbar spondylosis with scoliosis. IMPRESSION: 1. No significant change to benign-appearing left renal angiomyolipoma compared with 09/04/2019. Reviewed, dictated and finalized at location O.
--- OUTSIDE RECORDS SUMMARY | 2024-10-09 09:45 | XMS_ITS | Clinical Summary ---
Author Organization [facility] Address [address] [place] [address] Care Team Providers Care Pipe Fitter Helper Name Role Phone Tania Ware PA-C Primary Care Provider [phone] Allergies Active Allergy Reactions Criticality Noted Date [...] on file Legal Sex Female 3:31 PM OBSTETRIC ANAESTHETIST Gender Identity Not on file Sexual Orientation [...] 9:24 AM CDT Height 148.6 cm (4' 10.5) 10/12/2018 9:24 AM CD T Body Mass [...] exists OSTEOPOROSIS SCREENING 2023 INFLUENZA VACCINE (#1) 2024 11/17/2015 RSV VACCINE (60+ or ) (1 [...] Most Recently Relevant to Health Maintenance Insurance [facility] BLUE ACCESS CHOICE Care Teams Pipe Fitter Helper Relationship Specialty Start Date End Date Tania Ware PA-C [address] [place] [address] PCP - General Physician Tool Design Drafter 03/30/18
--- OUTSIDE RECORDS SUMMARY | 2024-10-09 09:45 | XMS_ITS | Encounter Summary ---
Author Organization [facility] Address [address] [place] [address] Phone Care Team Providers Care Shop Hand Name Role Phone Tania Ware Primary Care Provider [phone] Chris Mcqueen MD Unavailable [phone] KingsvilleAziza rios MD Unavailable [phone] Encounter Details Date Type Department Care Team (Late st Contact Info) Description 03/16/2022 Orders Only [facility] Scanning, Provider Social History Tobacco [...] on file Legal Sex Female 5:45 AM THERMOSTAT REPAIRER Gender Identity Female 12/08/2020 6:21 AM CDT Sexual Orientation Straight 12/08/2020 6: 21 AM CDT 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
--- OUTSIDE RECORDS SUMMARY | 2024-10-09 09:45 | XMS_ITS | Encounter Summary ---
Author Organization [facility] Care Team Providers Care Extrusion Press Supervisor Name Role Phone Tania Ware Primary Care Provider [phone] Chris Mcqueen MD Unavailable [phone] SherylAziza MD Unavailable [phone] Encounter Details Date Type Department Care Team (Latest Contact Info) Description 03/30/2018 Orders Only [facility] ProviderMiguel MD [address] [place] [address] Social History Tobacco Use Types Packs/Day Years Used Date Smoking Tobacco: Never Comments Unknown Sex and Gender Information Value Date Recorded Sex Assigned at Not on file Legal Sex Female 5:45 AM LEARNING STRATEGIST Gender Identity Female 12/08/2020 6:21 AM CDT Sexual Orientation Straight 12/08/2020 6: 21 AM CDT documented as of this encounter Plan of Treatment Not on file documented as of this encounter Procedures Procedure Name Priority Date/Time Associated Diagnosis Comments PROCEDURE - RESULT 03/30/2018 12 :00 AM LEARNING STRATEGIST documented in this encounter Results * PROCEDURE - RESULT (03/30/2018 12:00 AM LEARNING STRATEGIST) Narrative 03/30/2018 12:00 AM LEARNING STRATEGIST Ordered by an unspecified provider. us Historical Provider Final Res ult documented in this encounter Visit Diagnoses Not on filedocumented in this encounter Care Teams Extrusion Press Supervisor Relationship Specialty Start Date End Date Tania Ware PA [address] [place] [address] PCP - General Internal Medicine 06/29/18 Chris Mcqueen MD [address] [place] [address] Referring Physician [facility] 11/18/22 Aziza Saucedo MD [address] [place] [address] Surgeon Medical Oncology 10/14/23 documented as of this encounter
--- OUTSIDE RECORDS SUMMARY | 2024-10-09 09:45 | XMS_ITS | Encounter Summary ---
Author Organization [facility] Healthcare Address [address] [place] [address] Care Team Providers Care Manufacturing Sr Engineer Name Role Phone Tania Ware Primary Care Provider [phone] Chris Mcqueen MD Unavailable [phone] Aziza Saucedo MD Unavailable Encounter Details Date Type Department Care Team (Late st Contact Info) Description 06/06/2024 Orders Only [facility] [address] [place] [address] Scanning, Provider Social History Tobacco Use Types [...] on file Legal Sex Female 5:45 AM CLINICAL LAB CLERK Gender Identity Female 12/08/2020 6:21 AM CDT Sexual Orientation Straight 12/08/2020 6: 21 AM CDT Occupation Industry Job Start Date Job End Date Retired Not on file Not on file Not on file documented as of this encounter Plan of Treatment Not on file documented as of this encounter Procedures Procedure Name Priority Date/Time Associated Diagnosis Comments SCAN - RADIOLOGY/IMAGING 06/06/2024 documented in this encounter Results * SCAN - RADIOLOGY/IMAGING (06/06/2024) Anatomical Region Laterality Modality Other us Provider Scanning Final Result documented in this encounter Visit Diagnoses Not on filedocumented in this encounter Care Teams Manufacturing Sr Engineer Relationship Specialty Start Date End Date Tania Ware PA [address] [place] [address] PCP - General Internal Medicine 06/29/18 Chris Mcqueen MD [address] [place] [address] Referring Physician Bone Health 11/18/22 Aziza Saucedo MD [address] [place] [address] Surgeon Medical Oncology 10/14/23 documented as of this encounter
--- OUTSIDE RECORDS SUMMARY | 2024-10-09 09:45 | XMS_ITS | Clinical Summary ---
Author Organization [facility] Address [address] [place] [address] Care Team Providers Care Remote Operations Producer Name Role Phone Tania Ware Primary Care Provider [phone] Chris Mcqueen MD Unavailable [phone] LehighAziza rios MD Unavailable [phone] Allergies Active Allergy Reactions Criticality Noted Date Comments Penicillins Unknown High 01/29/2015 As a child Sulfa (Sulfonamide Antibiotics) Rash Medium 03/11 Rash Medications famotidine (PEPCID) 20 mg tablet Take 1 tablet (20 mg total) by mouth 2 (two) times a day Active diphenhydrAMIN E-acetaminophe n (TYLENOL PM) 25-500 mg tablet Take 1 tablet by mouth nightly Active acetaminophen (TYLENOL) 500 mg tablet Take 1 tablet (500 mg total) by mouth as needed for pain Active amLODIPine (NORVASC) 5 mg tabletIndicati ons:Hypertensi on, essential Take 1 tablet (5 mg total) by mouth daily 90 tablet 1 5 Active rosuvastatin (CRESTOR) 10 mg tablet Take 1 tablet (10 mg total) by mouth daily 90 tablet 1 Active meloxicam (MOBIC) 15 mg tablet Take 1 tablet by mouth once daily 90 tablet Active meloxicam (MOBIC) 15 mg tablet Take 1 tablet (15 mg total) by mouth daily 90 tablet 1 5 10/10/19 25 Discontinued Active Problems Problem Noted Date Diagnosed Date [...] Pepcid Assessment & Plan (02/06/2021 11:54 AM HIGH PRESSURE BOILER OPERATOR): Continue Pepcid p.r.n. he OA (osteoarthritis) 02/06/2021 Assessment & Plan (02/06/2021 11:53 AM HIGH PRESSURE BOILER OPERATOR): Continue Mobic p.r.n. Fracture of right wrist 06/09/2020 Arthritis of carpometacarpal (CMC) joint of left thumb 09/24/2019 Arthritis of carpometacarpal (CMC) joint of righ t thumb 09/24/2019 Kidney stone 08/19/2019 Overview (08/19/2019): Continue per Dr. Xavier. Assessment & Plan (08/19/2019 8:49 PM CDT): Continue per Dr. 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 Plan to repeat screening (Dr. Xavier will order) Unsure if this was done so will try to track down and if has not been done by next visit will consider rechecking imaging for stability Assessment & Plan (08/19/2019 8:48 PM CDT): Incidental finding 03/2019 CT in [place] (kidney stones) 4.1 x 3.2 cm mid left kidney. Plan to repeat screening (Dr. Xavier will order) Hand numbness 02/04/2019 Assessment & Plan (08/19/2019 8:25 PM CDT): Persistent sxs. Didn't respond to cockup splints. Will refer to ortho hand for full workup. Assessment & Plan (02/04/2019 3:05 PM HIGH PRESSURE BOILER OPERATOR): Probable carpal tunnel-- Start with cockup splint. [...] D. Assessment & Plan (01/29/2021 2:10 PM HIGH PRESSURE BOILER OPERATOR): Patient used to be on 5000 to 08703 international units vitamin D /day She has been off treatment for 6 weeks. Vitamin D level is normal at 58 on 01/22/21 - stay off vitamin D for now. Assessment & Plan (12/15/2020 3:30 PM HIGH PRESSURE BOILER OPERATOR): Patient has been on and off Vitamin [...] years. Assessment & Plan (01/29/2021 2:12 PM HIGH PRESSURE BOILER OPERATOR): Patient gives history of Osteopenia She was on Fosamax for about 1 year in 2019 She had bone density today for follow up Assessment & Plan (08/19/2019 8:32 PM CDT): Encourage calcium, vitamin D and weight bearing exercise to maintain the good bone strength. Continue Fosamax Assessment & Plan (09/18/2018 8:48 AM CDT): Managed by RUG UNDERLAY MACHINE OPERATOR Dr. Sorenson. On Fosamax Grief 09/15/2018 Assessment & Plan (09/18/2018 8:47 AM CDT): Patient is adjusting. About 9 Months out from her husbands . Situational stress 09/15/2018 Assessment & Plan (02/04/2019 3:03 PM HIGH PRESSURE BOILER OPERATOR): Discussed considering medication---as may be contributing to [...] readings. Assessment & Plan (02/06/2021 11:52 AM HIGH PRESSURE BOILER OPERATOR): Bp is stable/in acceptable range for any co-morbidities. Encouraged to limit sodium intake and exercise for weight control. Stable with amlodipine 2.5 mg daily Assessment & Plan (01/04/2021 10:03 PM HIGH PRESSURE BOILER OPERATOR): Bp is stable/in acceptable range for any co-morbidities. Encouraged to limit sodium intake and exercise for weight control. Start amlodipine 2.5 mg 1 daily. Insert drug follow-up in 2-3 weeks to recheck blood pressure. Assessment & Plan (08/19/2019 8:42 PM CDT): Stable. Continue to monitor. Assessment & Plan (02/04/2019 3:02 PM HIGH PRESSURE BOILER OPERATOR): bp is still upper normal but not [...] AM CDT): Check x-rays. Continue with the Mob. Will follow-up pending x-ray results Right foot [...] 024 Assessment & Plan (03/31/2023 7:51 AM HIGH PRESSURE BOILER OPERATOR): Weight/BMI is in healthy range. Continue healthy [...] back to normal. Annual physical exam 02/06/2021 024 Assessment & Plan (08/02/2023 2:28 PM CDT): [...] screenings. Assessment & Plan (02/06/2021 11:52 AM HIGH PRESSURE BOILER OPERATOR): Encouraged healthy lifestyle, good nutrition and exercise. Encouraged Calcium and Vitamin D and weight bearing exercise for bone health. Reviewed immunizations Reviewed age appropirate screenings. Breast cancer screening by mammogram 02/06/2021 05/14/2022 Assessment & Plan (02/06/2021 11:52 AM HIGH PRESSURE BOILER OPERATOR): Mammogram order provided Leg cramps 01/04/2021 04/22/2024 Assessment & Plan (01/04/2021 10:03 PM HIGH PRESSURE BOILER OPERATOR): Check labs BMI 22.0-22.9, adult 12/16/2020 023 Assessment & Plan (12/16/2020 7:35 AM HIGH PRESSURE BOILER OPERATOR): Weight/BMI is in healthy range. Continue healthy [...] visit. Assessment & Plan (01/29/2021 2:09 PM HIGH PRESSURE BOILER OPERATOR): History of mild hypercalcemia in 2019 Calcium [...] visit. Assessment & Plan (01/04/2021 10:03 PM HIGH PRESSURE BOILER OPERATOR): Continue to monitor per Dr. Diaz Assessment & Plan (12/15/2020 3:28 PM HIGH PRESSURE BOILER OPERATOR): History of mild hypercalcemia in 2019 Calcium [...] 04/22/2024 Assessment & Plan (01/04/2021 10:03 PM HIGH PRESSURE BOILER OPERATOR): Continue the Pepcid Assessment & Plan (12/15/2020 3:32 PM HIGH PRESSURE BOILER OPERATOR): Chronic- related to food, but can be [...] 021 Assessment & Plan (04/16/2020 7:50 AM HIGH PRESSURE BOILER OPERATOR): Weight/BMI is in healthy range. Continue healthy [...] maintain. Assessment & Plan (01/29/2019 8:37 AM HIGH PRESSURE BOILER OPERATOR): Weight/BMI is in healthy range. Continue healthy [...] Encounters Date Type Department Care Team Description 08/03/2024 Orders Only [facility] [place] [address] [place] [address] Scanning, Provider from Last 3 Months Immunizations Immunization Administration [...] Unspecified 03/10/2022(Deferr ed: Patient Refused),03/10/2021(Deferred: Patient Refused),11/19/2020,12/05/2019, 019 Milagros (J&J) SARS-CoV-2 Vaccination 01/02/2021, 04/11/2020 [facility] Sars-Cov-2 Bivalent V accination (12+ YRS) 11/13/2021 [...] Negative Sister Frances BRCA2 Negative Sister Frances Breast cancer Sister Frances Triple negative breast cancer (HCC) [...] on file Legal Sex Female 5:45 AM HIGH PRESSURE BOILER OPERATOR Gender Identity Female 12/08/2020 6:21 AM CDT Sexual Orientation Straight 12/08/2020 6: 21 AM CDT Occupation Industry Job Start Date Job End Date Retired Not on file Not on file Not on file Obstetrics History Para Term AB IAB SAB Ectopic Multiple Livin g Live Births 2 Date Outcome GA Total Labor Labor/2nd/3rd Weight Sex Type Anes PTL Nery A1 A5 Name Clin Last Filed Vital Signs Vital Sign Reading Time Taken Comments Blood Pressure 137/77 06/27/2024 10:27 AM CDT Pulse 74 06/27/2024 10:27 AM CDT Temperature 36.6 C (97.9 F) 06/27/2024 10:27 AM CDT Respiratory Rate 18 06/27/2024 10:27 AM CDT Oxygen Saturation 99% 06/27/2024 10:27 AM CDT Inhaled Oxygen Concentration - - Weight 45.8 kg (101 lb) 06/27/2024 10:27 AM CDT Height 142.2 cm (4' 8) 04/16/2024 7:51 AM CDT Body Mass Index 22.64 04/16/2024 7:51 AM CDT Plan of Treatment Health Maintenance Due Date Last Done Comments Hepatitis C Screening 1960 Hepatitis B Screening 1978 Covid-19 Vaccine (2024-03 6 season) 2024 11/13/2021, 01/02/2021, 04/11/2020 Influenza Vaccine (#1) 2024 , 11/30/2022, 11/19/2020, Additional history exists Osteoporosis Screening-Bone Density Scan 11/01/2024 11/01/2022, 01/29/2021 Depression Screening 04/16/2025 04/16/2024, 11/09/2023, 08/02/2023, Additional history exists Fall Risk Assessment 04/16/2025 04/16/2024, 08/02/2023, 04/15/2023, Additional history exists Well Visit 65+ 04/16/2025 04/16/2024, 07/09, 03/31/2023, Additional history exists Breast Cancer Screening-Mammogram 06/27/2025 06/27/2024, 06/22/2023, 04/20/2022, Additional history exists DTaP/Tdap/Td Vaccine (2 - Td or Tdap) 08/15/2029 08/16/2019 Colon Cancer Screening-Colonoscopy 12/05/2031 12/04/2021 Zoster Vaccine Completed 09/18/2018, 07/13/2018 Colon Cancer Screening-DNA Stool Discontinued 12/04/2021, 11/04/2021, 10/08/2018, Additional history exists Pneumococcal vaccine 65+ Completed 04/16/2024 Medical Devices Implanted Type Area Dental Hygiene Administrative Assistant Device Identifier Shelf Expiration Date Model / Serial / Lot Knee Replacement Knee Pins And Plates Foot Pins And Plates Wrist [employer] Compression Ft 2.5mm 18mm Compression Self Tap Cannulated Hex 1.5 [id number] - [id number] Implanted:Qty: 1 on 12/22/2021 by Nathan Castillo MD at [facility] Left: Middle Finger [employer] AR-[id number] / / Procedures Procedure Name Priority Date/Time Associated Diagnosis Comments SCAN - LABS 08/03/2024 SCREENING MAMMOGRAM BILATERAL W EDD Schedule Routine, Read Routine (OP Routine) 06/27/2024 10:17 AM CDT Encounter for screening mammogram for breast cancer Breast cancer screening by mammogram DEXA TBS AXIAL SKELETON BONE DENSITY 1 OR MORE SITES Schedule Routine, Read Routine (OP Routine) 11/01/2022 12:18 PM CDT Osteopenia, unspecified location HM COLONOSCOPY Routine 12/04/2021 from Last 3 Months or Most Recently Relevant to Health Maintenance Results * SCAN - LABS (08/03/2024) us Provider Scanning Final Result * Screening Mammogram Bilateral W Edd (06/27/2024 10:17 AM CDT) Anatomical Region Laterality Modality Breast Bilateral Mammography Impressions 06/29/2024 2:10 PM CDT Bilateral No evidence of malignancy in either breast. OVERALL BI-RADS FINAL ASSESSMENT: 1 - Negative RECOMMENDATION: Recommend bilateral annual screening mammography. Narrative 06/29/2024 2:10 PM CDT EXAMINATION: Screening Mammogram Bilateral W Edd: 06/27/2024 COMPARISON: TECHNIQUE: Mammography was performed with 2D and digital breast tomosynthesis (DBT) images. CAD was utilized. BREAST PARENCHYMAL COMPOSITION: The breasts are heterogeneously dense, which may obscure small masses. FINDINGS: Bilateral There is no suspicious mass, calcification, or architectural distortion in either breast.There are post biopsy clips in the right breast. Aziza Saucedo MD IMG MAMMO PROCEDURES Final Result * Dexa TBS Axial Skeleton Bone Density 1 or more sites (11/01/2022 12:18 PM CDT) Anatomical Region Laterality Modality Wrist, Body N/A Radiographic Jaqueline ging Narrative 11/01/2022 1:56 PM CDT Patient Name: Azalia Henley Date of : 1960 Date of scan: 11/01/2022 Bone mineral density was performed on a HoloR[employer] Discovery Densitometer. Based on machine cross-calibration and [...] by the International Society of Clinical Densitometry. [id number] Chris Mcqueen MD IMG DXA PROCEDURES Final Result * HM COLONOSCOPY (12/04/2021) us Bruce Phan MD HEALTH MAINTENANCE Edited Res ult - Final from Last 3 Months or Most Recently Relevant to Health Maintenance Insurance A[employer] MEDICARE GOLD AETNA MEDICARE GOLD AETNA MEDICARE GOLD Advance Directives For more information, please contact: [phone] * Full Code (Latest Code Status on File) Date Activated Date Inactivated Comments 04/14/2023 12:48 PM 04/15/2023 4:05 PM Care Teams Remote Operations Producer Relationship Specialty Start Date End Date Tania Ware PA [address] [place] [address] PCP - General Internal Medicine 06/29/18 Chris Mcqueen MD [address] [place] [address] Referring Physician Bone Health 11/18/22 Aziza Saucedo MD [address] [place] [address] Surgeon Medical Oncology 10/14/23
--- OUTSIDE RECORDS SUMMARY | 2024-10-09 09:45 | XMS_ITS | Encounter Summary ---
Author Organization [facility] Healthcare Address [address] [place] [address] Care Team Providers Care Director Product Management Name Role Phone Tania Ware Primary Care Provider [phone] Chris Mcqueen MD Unavailable [phone] Aziza Saucedo MD Unavailable [phone] Encounter Details Date Type Department Care Team (Late st Contact Info) Description 08/03/2024 Orders Only [facility] [place] Health Information Management [address] [place] [address] Scanning, Provider Social History Tobacco Use [...] on file Legal Sex Female 5:45 AM CIGAR SORTER Gender Identity Female 12/08/2020 6:21 AM CDT Sexual Orientation Straight 12/08/2020 6: 21 AM CDT Occupation Industry Job Start Date Job End Date Retired Not on file Not on file Not on file documented as of this encounter Plan of Treatment Not on file documented as of this encounter Procedures Procedure Name Priority Date/Time Associated Diagnosis Comments SCAN - LABS 08/03/2024 documented in this encounter Results * SCAN - LABS (08/03/2024) us Provider Scanning Final Result documented in this encounter Visit Diagnoses Not on filedocumented in this encounter Care Teams Director Product Management Relationship Specialty Start Date End Date Tania Ware PA [address] [place] [address] PCP - General Internal Medicine 06/29/18 Chris Mcqueen MD [address] [place] [address] Referring Physician Bone Health 11/18/22 Aziza Saucedo MD [address] [place] [address] Surgeon Medical Oncology 10/14/23 documented as of this encounter
--- OUTSIDE RECORDS SUMMARY | 2024-10-09 09:45 | XMS_ITS | Encounter Summary ---
Author Organization [facility] Care Team Providers Care Outpatient Services Director Name Role Phone Tania Ware Primary Care Provider [phone] Chris Mcqueen MD Unavailable [phone] SherylAziza MD Unavailable [phone] Encounter Details Date Type Department Care Team (Latest Contact Info) Description 04/11/2018 Orders Only [facility] ProviderMiguel MD [address] [place] [address] Social History Tobacco Use Types Packs/Day Years Used Date Smoking Tobacco: Never Comments Unknown Sex and Gender Information Value Date Recorded Sex Assigned at Not on file Legal Sex Female 5:45 AM PIPE SETTER Gender Identity Female 12/08/2020 6:21 AM CDT Sexual Orientation Straight 12/08/2020 6: 21 AM CDT documented as of this encounter Plan of Treatment Not on file documented as of this encounter Procedures Procedure Name Priority Date/Time Associated Diagnosis Comments PROCEDURE - RESULT 04/12/2018 12 :00 AM PIPE SETTER documented in this encounter Results * PROCEDURE - RESULT (04/12/2018 12:00 AM PIPE SETTER) Narrative 04/12/2018 12:00 AM PIPE SETTER Ordered by an unspecified provider. us Historical Provider Final Res ult documented in this encounter Visit Diagnoses Not on filedocumented in this encounter Care Teams Outpatient Services Director Relationship Specialty Start Date End Date Tania Ware PA [address] [place] [address] PCP - General Internal Medicine 06/29/18 Chris Mcqueen MD [address] [place] [address] Referring Physician [facility] Health 11/18/22 Aziza Saucedo MD [address] [place] [address] Surgeon Medical Oncology 10/14/23 documented as of this encounter
[2024-10-09 09:51] LABS: Estimated Glomerular Filt Rate > 60
== END 2024-10-09 09:30 | disposition home or self-care (01) ==
PROVIDERS: PCP Physician Assistant; Visit Provider Urology
DX: D17.71 Benign lipomatous neoplasm of kidney (principal)
CPT/HCPCS: 74170; Q9967

== ENCOUNTER 2024-11-06 13:04 | Outpatient (CLI) | payer MEDICARE, SELFPAY ==
--- NOTE | ~2024-11-06 | XR_ITS ---
EXAMINATION: XR knee RT min 4V, 11/06/2024 13:18 CDT HISTORY: M17.11 - Unilateral primary osteoarthritis, right knee COMPARISON: No comparisons available. Findings: No acute fracture or malalignment. Severe tricompartmental degenerative changes with chondrocalcinosis and small effusions Soft tissues unremarkable. Impression: No acute fracture or malalignment. Reviewed, dictated and finalized at location P. Impression: No acute fracture or malalignment.
--- OUTSIDE RECORDS SUMMARY | 2024-11-06 13:20 | XMS_ITS | Clinical Summary ---
Author Organization [facility] Address [address] [place] [address] Care Team Providers Care Engineering Technician Parking Name Role Phone Tania Ware PA-C Primary Care Provider [phone] Allergies Active Allergy Reactions Criticality Noted Date [...] on file Legal Sex Female 3:31 PM AUDIO TECHNICIAN Gender Identity Not on file Sexual Orientation [...] Most Recently Relevant to Health Maintenance Insurance [facility] BLUE ACCESS CHOICE Care Teams Engineering Technician Parking Relationship Specialty Start Date End Date Tania Ware PA-C [address] [facility] [address] [place] [address] PCP - General Physician Citrus Fruit Colorer 03/30/18
--- OUTSIDE RECORDS SUMMARY | 2024-11-06 13:20 | XMS_ITS | Clinical Summary ---
Author Organization [facility] Address [address] [place] [address] Care Team Providers Care Operating Room Tech Name Role Phone Tania Ware Primary Care Provider [phone] Chris Mcqueen MD Unavailable [phone] SherylAziza riso MD Unavailable [phone] Allergies Active Allergy Reactions Criticality Noted Date [...] mouth daily 90 tablet 1 5 Active meloxicam (MOBIC) 15 mg tablet Take 1 tablet by mouth once daily 90 tablet [address] (PROTONIX) 40 mg EC tablet Take 1 tablet (40 mg total) by mouth daily 90 tablet 1 5 10/20/19 26 Active meloxicam (MOBIC) 15 mg tablet Take 1 tablet (15 mg total) by mouth daily 90 tablet 1 5 10/10/19 25 Discontinued Active Problems Problem Noted Date Diagnosed Date BMI 22.0-22.9, adult 04/16/2024 Assessment & Plan (10/11/2024 10:10 AM CDT): Weight/BMI is in healthy range. Continue healthy lifestyle to maintain. Assessment & Plan (04/16/2024 7:59 AM CDT): Weight/BMI is in healthy range. Continue healthy lifestyle to maintain. Primary hyperparathyroidism 03/22/2023 Assessment & Plan (04/22/2024 [...] continues to follow with Dr. Mcqueen at [facility] Assessment & Plan (04/17/2023 8:16 PM CDT): Patient is following with bone metabolism hit [facility]. Has parathyroidectomy scheduled with Dr. Hernandez [...] Pepcid Assessment & Plan (02/06/2021 11:54 AM ASSEMBLER PRODUCT): Continue Pepcid p.r.n. he OA (osteoarthritis) 02/06/2021 Assessment & Plan (02/06/2021 11:53 AM ASSEMBLER PRODUCT): Continue Mobic p.r.n. Fracture of right wrist 06/09/2020 Arthritis of carpometacarpal (CMC) joint of left thumb 09/24/2019 Arthritis of carpometacarpal (CMC) joint of righ t thumb 09/24/2019 Kidney stone 08/19/2019 Overview (08/19/2019): Continue per Dr. Xavier. Assessment & Plan (08/19/2019 8:49 PM CDT): Continue per Dr. Xavier Angiomyolipoma of left kidney 08/16/2019 Overview (08/01/2023): Incidental finding 03/2019 CT in [place] (kidney stones) 4.1 x 3.2 cm mid [...] PM CDT): Incidental finding 03/2019 CT in [place] (kidney stones) 4.1 x 3.2 cm mid left kidney. Plan to repeat screening (Dr. Xavier will order) Unsure if this was done so will try to track down and if has not been done by next visit will consider rechecking imaging for stability Assessment & Plan (08/19/2019 8:48 PM CDT): Incidental finding 03/2019 CT in [place] (kidney stones) 4.1 x 3.2 cm mid left kidney. Plan to repeat screening (Dr. Xavier will order) Hyperkalemia 09/25/2018 Assessment & Plan (08/02/2023 2:28 [...] D. Assessment & Plan (01/29/2021 2:10 PM ASSEMBLER PRODUCT): Patient used to be on 5000 to 31139 international units vitamin D /day She has been off treatment for 6 weeks. Vitamin D level is normal at 58 on 01/22/21 - stay off vitamin D for now. Assessment & Plan (12/15/2020 3:30 PM ASSEMBLER PRODUCT): Patient has been on and off Vitamin [...] years. Assessment & Plan (01/29/2021 2:12 PM ASSEMBLER PRODUCT): Patient gives history of Osteopenia She was on Fosamax for about 1 year in 2019 She had bone density today for follow up Assessment & Plan (08/19/2019 8:32 PM CDT): Encourage calcium, vitamin D and weight bearing exercise to maintain the good bone strength. Continue Fosamax Assessment & Plan (09/18/2018 8:48 AM CDT): Managed by PREVENTATIVE MAINTENANCE TECHNICIAN Dr. Sorenson. On Fosamax Grief 09/15/2018 Assessment & Plan (09/18/2018 8:47 AM CDT): Patient is adjusting. About 9 Months out from her husbands . Situational stress 09/15/2018 Assessment & Plan (02/04/2019 3:03 PM ASSEMBLER PRODUCT): Discussed considering medication---as may be contributing to [...] readings. Assessment & Plan (02/06/2021 11:52 AM ASSEMBLER PRODUCT): Bp is stable/in acceptable range for any co-morbidities. Encouraged to limit sodium intake and exercise for weight control. Stable with amlodipine 2.5 mg daily Assessment & Plan (01/04/2021 10:03 PM ASSEMBLER PRODUCT): Bp is stable/in acceptable range for any co-morbidities. Encouraged to limit sodium intake and exercise for weight control. Start amlodipine 2.5 mg 1 daily. Insert drug follow-up in 2-3 weeks to recheck blood pressure. Assessment & Plan (08/19/2019 8:42 PM CDT): Stable. Continue to monitor. Assessment & Plan (02/04/2019 3:02 PM ASSEMBLER PRODUCT): bp is still upper normal but not [...] Aziza Saucedo in shallow. Will place referral Resolved Problems Problem Noted Date Diagnosed Date Resolved Date Fatigue 04/22/2024 10/21/2024 Assessment & Plan (04/22/2024 8:33 PM CDT): Probably multifactorial. Check labs and followup to re-evaluate Breast cancer screening by mammogram 04/16/2024 10/21/2024 Assessment & Plan (04/22/2024 8:33 PM CDT): Mammogram order provided Need for pneumococcal vaccine 04/16/2024 10/21/2024 Assessment & Plan (04/22/2024 8:33 PM CDT): Prevnar 20 updated in the office today Medicare annual wellness visit, initial 04/16/2024 10/21/2024 Assessment & Plan (04/22/2024 8:33 PM CDT): Encouraged healthy lifestyle, good nutrition and exercise. Encouraged Calcium and Vitamin D and weight bearing exercise for bone health. Reviewed immunizations. Reviewed age appropirate screenings. Medicare Wellness Documentation is completed within the chart Encounter for screening mamm ogram for breast [...] 024 Assessment & Plan (03/31/2023 7:51 AM ASSEMBLER PRODUCT): Weight/BMI is in healthy range. Continue healthy [...] screenings. Assessment & Plan (02/06/2021 11:52 AM ASSEMBLER PRODUCT): Encouraged healthy lifestyle, good nutrition and exercise. Encouraged Calcium and Vitamin D and weight bearing exercise for bone health. Reviewed immunizations Reviewed age appropirate screenings. Breast cancer screening by mammogram 02/06/2021 05/14/2022 Assessment & Plan (02/06/2021 11:52 AM ASSEMBLER PRODUCT): Mammogram order provided Leg cramps 01/04/2021 04/22/2024 Assessment & Plan (01/04/2021 10:03 PM ASSEMBLER PRODUCT): Check labs BMI 22.0-22.9, adult 12/16/2020 04/ 023 Assessment & Plan (12/16/2020 7:35 AM ASSEMBLER PRODUCT): Weight/BMI is in healthy range. Continue healthy [...] visit. Assessment & Plan (01/29/2021 2:09 PM ASSEMBLER PRODUCT): History of mild hypercalcemia in 2019 Calcium [...] visit. Assessment & Plan (01/04/2021 10:03 PM ASSEMBLER PRODUCT): Continue to monitor per Dr. Diaz Assessment & Plan (12/15/2020 3:28 PM ASSEMBLER PRODUCT): History of mild hypercalcemia in 2019 Calcium [...] 04/22/2024 Assessment & Plan (01/04/2021 10:03 PM ASSEMBLER PRODUCT): Continue the Pepcid Assessment & Plan (12/15/2020 3:32 PM ASSEMBLER PRODUCT): Chronic- related to food, but can be [...] 021 Assessment & Plan (04/16/2020 7:50 AM ASSEMBLER PRODUCT): Weight/BMI is in healthy range. Continue healthy lifestyle to maintain. Primary osteoarthritis of right hand 10/24/2019 04/22/2024 Right wrist pain 09/24/2019 04/22/2024 Left wrist pain 09/24/2019 04/22/2024 Left carpal tunnel syndrome 09/24/2019 04/22/2024 Need for Tdap vaccination 08/19/2019 Assessment & Plan (08/19/2019 8:47 PM CDT): Updated in office today Hand numbness 02/04/2019 10/21/2024 Assessment & Plan (08/19/2019 8:25 PM CDT): Persistent sxs. Didn't respond to cockup splints. Will refer to ortho hand for full workup. Assessment & Plan (02/04/2019 3:05 PM ASSEMBLER PRODUCT): Probable carpal tunnel-- Start with cockup splint. If sxs persist will consider nerve conduction vs referral to hand specialist. Start Mobic BMI 23.0-23.9, adult 09/18/2018 021 Assessment & Plan (08/19/2019 8:42 PM CDT): Weight/BMI is in healthy range. Continue healthy lifestyle to maintain. Assessment & Plan (01/29/2019 8:37 AM ASSEMBLER PRODUCT): Weight/BMI is in healthy range. Continue healthy [...] pos tmenopausal hormone replacement therapy 03/30/2018 08/02/2023 Primary osteoarthritis of right knee 11/11/2016 10/21/2024 Abnormal finding on mammography 01/28/2015 11/09/2023 Encounters Date Type Department Care Team Description 10/19/2024 Orders Only [facility] Medicine [address] [place] [address] [place] [id number] Provider, MD Miguel 10/11/2024 10:00 AM CDT Office Visit [facility] [address] [place] [address] [address] [place] [address] Tania Ware PA Annual physical exam (Primary Dx); Angiomyolipoma of left kidney; Hypertension, essential; Gastroesophageal reflux disease without esophagitis; Primary osteoarthritis of hand, unspecified laterality; Seasonal allergic rhinitis, unspecified trigger; Primary hyperparathyroidism; Mixed hyperlipidemia; BMI 22.0-22.9, adult 10/09/2024 Orders Only [facility] Health Information Management [address] [place] [address] Scanning, Provider from Last 3 Months Immunizations [...] 019 Milagros (J&J) SARS-CoV-2 Vaccination 01/02/2021, 04/11/2020 [facility] Sars-Cov-2 Bivalent V accination (12+ YRS) 11/13/2021 [...] Kidney stone had one 03/2019 Hyperthyroidism Hypercholesteremia Renal mass Family History Medical History Relation Name Comments COPD Father Efraín Odom Cancer Father Efraín Odom Diabetes Father Efraín Odom Early Father Efraín Odom Heart disease Father Efraín Odom Hyperlipidemia Father Efraín Odom Hypertension Father Efraín Odom Kidney disease Father Efraín Odom Lung cancer Father Efraín Odom Obesity Father Efraín Odom Pancreatic cancer Maternal Grandfather Arthritis Maternal Grandmother Cadence Santana Mental illness Maternal Grandmother Cadence Garza Max Breast cancer Mother Elza Santana Family history of malignant neoplasm of breast - (Added by TW Conv)/Adenocarcinoma of breast - (Added by TW Conv) Cancer Mother Elza Max Depression Mother Elza Max Obesity Mother Elza Max Thyroid disease Mother Elza Max Breast cancer Mother's Sister Arthritis Paternal Grandmother Gretta Dimmett BRCA1 Negative Sister 1 Frances BRCA2 Negative Sister 1 Frances Breast cancer Sister 1 Frances Triple negative breast cancer (HCC) Sister 1 Frances identical twin Arthritis Sister 2 Frances Harrington Relation Name Status Comments Father Efraín Odom Maternal Grandfather Maternal Grandmother Cadence Santana Mother Elza Santana Mother's Sister Alive Paternal Grandmother Gretta Kumett Alive Sister 1 Frances Alive Sister 2 Frances Harrington Alive Social History Tobacco Use Types Packs/Day Years Used Date Smoking Tobacco: Former Cigarettes 0.3 6.9 0 03/21/1973 - 1980 Passive Smoke Exposure: Past Smokeless Tobacco: Former Tobacco Cessation:Counseling Given: Not Answered Alcohol Use Standard Drinks/Week Comments Yes 4 (1 standard drink = 0.6 oz pur e alcohol) PHQ-2 Answer Date Recorded PHQ-2 Total Score (If total score is 3 or more points, staff should administer the PHQ-9) 0 10/11/2024 AUDIT-C Answer Date Recorded Q1: How often do you have a drink containing alcohol? 4 or more times a week 10/11/2024 Q2: How many drinks containi ng alcohol do you have on a typical day when you are drinking? 1 or 2 Q3: How often do you have si x or more drinks on one occasion? Less than monthly 10/11/2024 Personal Safety Answer Date Recorded Have you ever been in or are you currently in a harmful physical or emotional relationship or is someone making you feel afraid or unsafe? Denies 04/14/2023 Comments No Sex and Gender Information Value Date Recorded Sex Assigned at Not on file Legal Sex Female 5:45 AM ASSEMBLER PRODUCT Gender Identity Female 12/08/2020 6:21 AM CDT [...] Sign Reading Time Taken Comments Blood Pressure 128/72 10/11/2024 10:05 AM CDT Pulse 62 10/11/2024 10:05 AM CDT Temperature 36.7 C (98 F) 10/11/2024 10:05 AM CDT Respiratory Rate 18 06/27/2024 10:27 AM CDT Oxygen Saturation 97% 10/11/2024 10:05 AM CDT Inhaled Oxygen Concentration - - Weight 46.3 kg (102 lb) 10/11/2024 10:05 AM CDT Height 142.2 cm (4' 8) 10/11/2024 10:05 AM CDT Body Mass Index 22.87 10/11/2024 10:05 AM CDT Plan of Treatment Health Maintenance Due Date Last Done Comments Hepatitis C Screening 1960 Hepatitis B Screening 1978 Covid-19 Vaccine (2024-2 6 season) 2024 11/13/2021, 01/02/2021, 04/11/2020 Influenza Vaccine (#1) 2024 , 11/30/2022, 11/19/2020, Additional history exists Osteoporosis Screening-Bone Density Scan 11/01/2024 11/01/2022, 01/29/2021 Breast Cancer Screening-Mammogram 06/27/2025 06/27/2024, 06/22/2023, 04/20/2022, Additional history exists Depression Screening 10/11/2025 10/11/2024, 04/16/2024, 11/09/2023, Additional history exists Fall Risk Assessment 10/11/2025 10/11/2024, 04/16/2024, 08/02/2023, Additional history exists Well Visit 65+ 10/11/2025 10/11/2024, 04/07, 08/02/2023, Additional history exists DTaP/Tdap/Td Vaccine (2 - Td or Tdap) 08/15/2029 08/16/2019 Colon Cancer Screening-Colonoscopy 12/05/2031 12/04/2021 Zoster Vaccine Completed 09/18/2018, 07/13/2018 Colon Cancer Screening-DNA Stool Discontinued 12/04/2021, 11/04/2021, 10/08/2018, Additional history exists Pneumococcal vaccine 65+ Completed 04/16/2024 Medical Devices Implanted Type Area Frame Repairer Device Identifier Shelf Expiration Date Model / Serial / Lot Knee Replacement Knee Pins And Plates Foot Pins And Plates Wrist [employer] Compression Ft 2.5mm 18mm Compression Self Tap Cannulated Hex 1.5 [id number] - [id number] Implanted:Qty: 1 on 12/22/2021 by Nathan Castillo MD at [facility] Left: Middle Finger [employer] AR-[id number] / / Procedures Procedure Name Priority Date/Time Associated Diagnosis Comments CT ABDOMEN PELVIS W WO CONTRAST Schedule Routine, Read Routine (OP Routine) 10/19/2024 9:21 AM CDT SCAN - LABS 10/09/2024 SCAN - RADIOLOGY/IMAGING 10/09/2024 SCREENING MAMMOGRAM BILATERAL W EDD Schedule Routine, Read Routine (OP Routine) 06/27/2024 10:17 AM CDT Encounter for screening mammogram for breast cancer Breast cancer screening by mammogram DEXA TBS AXIAL SKELETON BONE DENSITY 1 OR MORE SITES Schedule Routine, Read Routine (OP Routine) 11/01/2022 12:18 PM CDT Osteopenia, unspecified location COLONOSCOPY Routine 12/04/2021 from Last 3 Months or Most Recently Relevant to Health Maintenance Results * CT Abdomen Pelvis W WO Contrast (10/19/2024 9:21 AM CDT) Anatomical Region Laterality Modality Body N/A Computed Tomogra phy us Historical Provider MD [facility] CT PROCEDURES Edited Result - Final * SCAN - RADIOLOGY/IMAGING (10/09/2024) Anatomical Region Laterality Modality Other us Provider Scanning Final Result * SCAN - LABS (10/09/2024) us Provider Scanning Final Result * Screening [...] Bone mineral density was performed on a [employer] Discovery Densitometer. Based on machine cross-calibration and [...] by the International Society of Clinical Densitometry. [id number] Chris Mcqueen MD [facility] DXA PROCEDURES Final Result * COLONOSCOPY (12/04/2021) us Bruce Phan MD HEALTH MAINTENANCE Edited Res ult - Final from Last 3 Months or Most Recently Relevant to Health Maintenance Insurance T [place] [address] [place] [address] MEDICARE [facility] T MEDICARE GOLD Advance Directives For more information, please contact: [phone] * Full Code (Latest Code Status on File) Date Activated Date Inactivated Comments 04/14/2023 12:48 PM 04/15/2023 4:05 PM Care Teams Operating Room Tech Relationship Specialty Start Date End Date Tania Ware PA [address] [place] [address] PCP - General Internal Medicine 06/29/18 Chris Mcqueen MD [address] [place] [address] Referring Physician Bone Health 11/18/22 Aziza Saucedo MD [address] [place] [address] Surgeon Medical Oncology 10/14/23
--- OUTSIDE RECORDS SUMMARY | 2024-11-06 13:20 | XMS_ITS | Encounter Summary ---
Author Organization [facility] Facility Care Team Providers Care Beverage Sales Consultant Name Role Phone Tania Ware Primary Care Provider [phone] Chris Mcqueen MD Unavailable [phone] Port AlexanderAziza MD Unavailable [phone] Encounter Details Date Type Department Care Team (Latest Contact Info) Description 04/11/2018 Orders Only [facility] ProviderMiguel MD [address] [place] [address] Social History Tobacco Use Types Packs/Day Years Used Date Smoking Tobacco: Never Comments Unknown Sex and Gender Information Value Date Recorded Sex Assigned at Not on file Legal Sex Female 5:45 AM GENERAL ASSISTANT Gender Identity Female 12/08/2020 6:21 AM CDT Sexual Orientation Straight 12/08/2020 6: 21 AM CDT documented as of this encounter Plan of Treatment Not on file documented as of this encounter Procedures Procedure Name Priority Date/Time Associated Diagnosis Comments PROCEDURE - RESULT 04/12/2018 12 :00 AM GENERAL ASSISTANT documented in this encounter Results * PROCEDURE - RESULT (04/12/2018 12:00 AM GENERAL ASSISTANT) Narrative 04/12/2018 12:00 AM GENERAL ASSISTANT Ordered by an unspecified provider. us Historical Provider Final Res ult documented in this encounter Visit Diagnoses Not on filedocumented in this encounter Care Teams Beverage Sales Consultant Relationship Specialty Start Date End Date Tania Ware PA [address] [place] [address] PCP - General Internal Medicine 06/29/18 Chris Mcqueen MD [address] [place] [address] Referring Physician [facility] Health 11/18/22 Aziza Saucedo MD [address] [place] [address] Surgeon Medical Oncology 10/14/23 documented as of this encounter
--- OUTSIDE RECORDS SUMMARY | 2024-11-06 13:20 | XMS_ITS | Encounter Summary ---
Author Organization [facility] Healthcare Address [address] [place] [address] Care Team Providers Care Chinese Language Professor Name Role Phone Tania Ware Primary Care Provider [phone] Chris Mcqueen MD Unavailable [phone] Aziza Saucedo MD Unavailable [phone] Encounter Details Date Type Department Care Team (Late st Contact Info) Description 06/06/2024 Orders Only [facility] Health Information Management [address] [place] [address] Scanning, Provider Social History Tobacco Use [...] on file Legal Sex Female 5:45 AM FURNACE KEEPER Gender Identity Female 12/08/2020 6:21 AM CDT [...] on filedocumented in this encounter Care Teams Chinese Language Professor Relationship Specialty Start Date End Date Tania Ware PA [address] [place] [address] PCP - General Internal Medicine 06/29/18 Chris Mcqueen MD [address] [place] [address] Referring Physician Bone Health 11/18/22 Aziza Saucedo MD [address] [place] [address] Surgeon Medical Oncology 10/14/23 documented as of this encounter
--- OUTSIDE RECORDS SUMMARY | 2024-11-06 13:20 | XMS_ITS | Encounter Summary ---
Author Organization [facility] Facility Care Team Providers Care Automotive Parts Specialist Name Role Phone Tania Ware Primary Care Provider [phone] Chris Mcqueen MD Unavailable [phone] LacledeAziza MD Unavailable [phone] Encounter Details Date Type Department Care Team (Latest Contact Info) Description 03/30/2018 Orders Only [facility] ProviderMiguel MD [address] [place] [address] Social History Tobacco Use Types Packs/Day Years Used Date Smoking Tobacco: Never Comments Unknown Sex and Gender Information Value Date Recorded Sex Assigned at Not on file Legal Sex Female 5:45 AM SPEECH THERAPIST Gender Identity Female 12/08/2020 6:21 AM CDT Sexual Orientation Straight 12/08/2020 6: 21 AM CDT documented as of this encounter Plan of Treatment Not on file documented as of this encounter Procedures Procedure Name Priority Date/Time Associated Diagnosis Comments PROCEDURE - RESULT 03/30/2018 12 :00 AM SPEECH THERAPIST documented in this encounter Results * PROCEDURE - RESULT (03/30/2018 12:00 AM SPEECH THERAPIST) Narrative 03/30/2018 12:00 AM SPEECH THERAPIST Ordered by an unspecified provider. us Historical Provider Final Res ult documented in this encounter Visit Diagnoses Not on filedocumented in this encounter Care Teams Automotive Parts Specialist Relationship Specialty Start Date End Date Tania Ware PA [address] [place] [address] PCP - General Internal Medicine 06/29/18 Chris Mcqueen MD [address] [place] [address] Referring Physician [facility] Health 11/18/22 Aziza Saucedo MD [address] [place] [address] Surgeon Medical Oncology 10/14/23 documented as of this encounter
--- OUTSIDE RECORDS SUMMARY | 2024-11-06 13:20 | XMS_ITS | Encounter Summary ---
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
--- OUTSIDE RECORDS SUMMARY | 2024-11-06 13:20 | XMS_ITS | Encounter Summary ---
Author Organization [facility] Healthcare Address [address] [place] [address] Care Team Providers Care Brand Inspector Name Role Phone Tania Ware Primary Care Provider [phone] Chris Mcqueen MD Unavailable [phone] Aziza Saucedo MD Unavailable Encounter Details Date Type Department Care Team (Late st Contact Info) Description 10/09/2024 Orders Only [facility] Health Information Management [address] [place] [address] Scanning, Provider Social History Tobacco Use [...] on file Legal Sex Female 5:45 AM DRAWING SUPERVISOR Gender Identity Female 12/08/2020 6:21 AM CDT Sexual Orientation Straight 12/08/2020 6: 21 AM CDT Occupation Industry Job Start Date Job End Date Retired Not on file Not on file Not on file documented as of this encounter Functional Status * AUDIT-C Score Answer Date of Assessment Author 5 10/11/2024 10:08 AM Pilar Osorio MA * Question Answer Date of Assessment Author Q1: How often do you have a drink containing alcohol? 4 or more times a week 10/11/2024 10:08 AM Pilar Osorio MA Q2: How many drinks containing alcohol do you have on a typical day when you are drinking? 1 or 2 10/11/2024 10:08 AM Pilar Osorio MA Q3: How often do you have six or more drinks on one occasion? Less than monthly 10/11/2024 10:08 AM Pilar Osorio MA documented as of this encounter Plan of Treatment Not on file documented as of this encounter Procedures Procedure Name Priority Date/Time Associated Diagnosis Comments SCAN - RADIOLOGY/IMAGING 10/09/2024 SCAN - LABS 10/09/2024 documented in this encounter Results * SCAN - LABS (10/09/2024) us Provider Scanning Final Result * SCAN - RADIOLOGY/IMAGING (10/09/2024) Anatomical Region Laterality Modality Other us Provider Scanning Final Result documented in this encounter Visit Diagnoses Not on filedocumented in this encounter Care Teams Brand Inspector Relationship Specialty Start Date End Date Tania Ware PA [address] [facility] [address] [place] [address] PCP - General Internal Medicine 06/29/18 Chris Mcqueen MD [address] [address] Referring Physician Bone Health 11/18/22 Aziza Saucedo MD [address] [facility] [address] [place] [address] Surgeon Medical Oncology 10/14/23 documented as of this encounter
--- OUTSIDE RECORDS SUMMARY | 2024-11-06 13:20 | XMS_ITS | Encounter Summary ---
Author Organization [facility] Healthcare Address [address] [place] [address] Care Team Providers Care Home Sales Consultant Name Role Phone Tania Ware Primary Care Provider [phone]- [phone] hCris Mcqueen MD Unavailable Aziza Saucedo MD Unavailable [phone] Encounter Details Date Type Department Care Team (Late st Contact Info) Description 08/03/2024 Orders Only [facility] Health Information Management [address] [place] [address] Scanning, Provider Social History Tobacco Use [...] on file Legal Sex Female 5:45 AM FINISHED GOODS PLANNER Gender Identity Female 12/08/2020 6:21 AM CDT [...] on filedocumented in this encounter Care Teams Home Sales Consultant Relationship Specialty Start Date End Date Tania Ware PA [address] [place] [address] PCP - General Internal Medicine 06/29/18 Chris Mcqueen MD [address] [place] [address] Referring Physician Bone Health 11/18/22 Aziza Saucedo MD [address] [place] [address] Surgeon Medical Oncology 10/14/23 documented as of this encounter
== END 2024-11-06 13:05 | disposition home or self-care (01) ==
PROVIDERS: PCP Physician Assistant; Visit Provider Physician Assistant Surgical
DX: M17.11 Unilateral primary osteoarthritis, right knee (principal)
CPT/HCPCS: 73564

== ENCOUNTER 2024-11-07 11:48 | Outpatient (CLI) | payer MEDICARE, SELFPAY ==
--- OUTSIDE RECORDS SUMMARY | 2024-11-07 12:17 | XMS_ITS | Encounter Summary ---
Author Organization [facility] Healthcare Address [address] [place] [address] Care Team Providers Care Registered Nurse Step Down Name Role Phone Tania Ware Primary Care Provider [phone]- [phone] Chris Mcqueen MD Unavailable [phone] Aziza Saucedo MD Unavailable [phone] Encounter Details Date Type Department Care Team (Late st Contact Info) Description 06/06/2024 Orders Only [facility] Health Information Management [address] [place] [address] Scanning, Provider Social History Tobacco Use [...] on file Legal Sex Female 5:45 AM PARK INTERPRETER Gender Identity Female 12/08/2020 6:21 AM CDT [...] on filedocumented in this encounter Care Teams Registered Nurse Step Down Relationship Specialty Start Date End Date Tania Ware PA [address] [place] [address] PCP - General Internal Medicine 06/29/18 Chris Mcqueen MD [address] [place] [address] Referring Physician Bone Health 11/18/22 Aziza Saucedo MD [address] [place] [address] Surgeon Medical Oncology 10/14/23 documented as of this encounter
--- OUTSIDE RECORDS SUMMARY | 2024-11-07 12:17 | XMS_ITS | Encounter Summary ---
Author Organization [facility] Facility Care Team Providers Care International Broadcast Music Librarian Name Role Phone Tania Wrae Primary Care Provider [phone]- [phone] Chris Mcqueen MD Unavailable [phone] [place] MD Unavailable [phone] Encounter Details Date Type Department Care Team (Latest Contact Info) Description 03/30/2018 Orders Only [facility] ProviderMiguel MD [address] [place] [address] Social History Tobacco Use Types Packs/Day Years Used Date Smoking Tobacco: Never Comments Unknown Sex and Gender Information Value Date Recorded Sex Assigned at Not on file Legal Sex Female 5:45 AM SHOE REPAIRER Gender Identity Female 12/08/2020 6:21 AM CDT Sexual Orientation Straight 12/08/2020 6: 21 AM CDT documented as of this encounter Plan of Treatment Not on file documented as of this encounter Procedures Procedure Name Priority Date/Time Associated Diagnosis Comments PROCEDURE - RESULT 03/30/2018 12 :00 AM SHOE REPAIRER documented in this encounter Results * PROCEDURE - RESULT (03/30/2018 12:00 AM SHOE REPAIRER) Narrative 03/30/2018 12:00 AM SHOE REPAIRER Ordered by an unspecified provider. us Historical Provider Final Res ult documented in this encounter Visit Diagnoses Not on filedocumented in this encounter Care Teams International Broadcast Music Librarian Relationship Specialty Start Date End Date Tania Ware PA [address] [place] [address] PCP - General Internal Medicine 06/29/18 Chris Mcqueen MD [address] [place] [address] Referring Physician [facility] 11/18/22 Aziza Saucedo MD [address] [place] [address] Surgeon Medical Oncology 10/14/23 documented as of this encounter
--- OUTSIDE RECORDS SUMMARY | 2024-11-07 12:17 | XMS_ITS | Encounter Summary ---
Author Organization [facility] Facility Care Team Providers Care Quill Picking Machine Operator Name Role Phone Tania Ware Primary Care Provider [phone]- [phone] Chris Mcqueen MD Unavailable [phone] [place] MD Unavailable [phone] Encounter Details Date Type Department Care Team (Latest Contact Info) Description 04/11/2018 Orders Only [facility] ProviderMiguel MD [address] [place] [address] Social History Tobacco Use Types Packs/Day Years Used Date Smoking Tobacco: Never Comments Unknown Sex and Gender Information Value Date Recorded Sex Assigned at Not on file Legal Sex Female 5:45 AM HAND SPRING REPAIRER HELPER Gender Identity Female 12/08/2020 6:21 AM CDT Sexual Orientation Straight 12/08/2020 6: 21 AM CDT documented as of this encounter Plan of Treatment Not on file documented as of this encounter Procedures Procedure Name Priority Date/Time Associated Diagnosis Comments PROCEDURE - RESULT 04/12/2018 12 :00 AM HAND SPRING REPAIRER HELPER documented in this encounter Results * PROCEDURE - RESULT (04/12/2018 12:00 AM HAND SPRING REPAIRER HELPER) Narrative 04/12/2018 12:00 AM HAND SPRING REPAIRER HELPER Ordered by an unspecified provider. us Historical Provider Final Res ult documented in this encounter Visit Diagnoses Not on filedocumented in this encounter Care Teams Quill Picking Machine Operator Relationship Specialty Start Date End Date Tania Ware PA [address] [place] [address] PCP - General Internal Medicine 06/29/18 Chris Mcqueen MD [address] [place] [address] Referring Physician [facility] 11/18/22 Aziza Saucedo MD [address] [place] [address] Surgeon Medical Oncology 10/14/23 documented as of this encounter
--- OUTSIDE RECORDS SUMMARY | 2024-11-07 12:17 | XMS_ITS | Encounter Summary ---
Author Organization [facility] Address [address] [facility] [address] Phone Care Team Providers Care Mechanotherapist Name Role Phone Tania Ware Primary Care Provider [phone]- [phone] Chris Mcqueen MD Unavailable [phone] SherylAziza rios MD Unavailable [phone] Encounter Details Date Type Department Care Team [...] on file Legal Sex Female 5:45 AM ASSISTANT PROFESSOR Gender Identity Female 12/08/2020 6:21 AM CDT Sexual Orientation Straight 12/08/2020 6: 21 AM CDT 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
--- OUTSIDE RECORDS SUMMARY | 2024-11-07 12:17 | XMS_ITS | Clinical Summary ---
Author Organization [facility] Address [address] [place] [address] Care Team Providers Care Supervisor Malt House Name Role Phone Tania Ware PA-C Primary Care Provider [phone] Allergies Active Allergy Reactions Criticality Noted Date [...] on file Legal Sex Female 3:31 PM PRIMING MIXTURE CARRIER Gender Identity Not on file Sexual Orientation [...] Most Recently Relevant to Health Maintenance Insurance [facility] BLUE ACCESS CHOICE Care Teams Supervisor Malt House Relationship Specialty Start Date End Date Tania Ware PA-C [address] [facility] [address] [place] [address] PCP - General Physician Hris Administrator 03/30/18
--- OUTSIDE RECORDS SUMMARY | 2024-11-07 12:17 | XMS_ITS | Encounter Summary ---
Author Organization [facility] Healthcare Address [address] [place] [address] Care Team Providers Care Director Project Management Name Role Phone Tnaia Ware Primary Care Provider [phone]- [phone] Chris Mcqueen MD Unavailable [phone] Aziza Saucedo MD Unavailable [phone] Encounter Details Date Type Department Care Team (Late st Contact Info) Description 08/03/2024 Orders Only [facility] Health Information Management [address] [place] [address] Scanning, Provider Social History Tobacco Use [...] on file Legal Sex Female 5:45 AM CRM DYNAMICS DEVELOPER Gender Identity Female 12/08/2020 6:21 AM CDT [...] filedocumented in this encounter Care Teams Director Project Management Relationship Specialty Start Date End Date Tania Ware PA [address] [place] [address] PCP - General Internal Medicine 06/29/18 Chris Mcqueen MD [address] [place] [address] Referring Physician Bone Health 11/18/22 Aziza Saucedo MD [address] [place] [address] Surgeon Medical Oncology 10/14/23 documented as of this encounter
--- OUTSIDE RECORDS SUMMARY | 2024-11-07 12:18 | XMS_ITS | Clinical Summary ---
Author Organization [facility] Address [address] [place] [address] Care Team Providers Care Clerk Guide Name Role Phone Tania Ware Primary Care Provider [phone]- [phone] Chris Mcqueen MD Unavailable [phone] SherylAziza rios MD Unavailable [phone] Allergies Active Allergy Reactions Criticality Noted Date [...] 90 tablet 1 5 10/20/19 26 Active rosuvastatin (CRESTOR) 10 mg tablet Take 1 tablet by mouth once daily 90 tablet 5 Active rosuvastatin (CRESTOR) 10 mg tablet Take 1 tablet (10 mg total) by mouth daily 90 tablet 1 5 11/08/19 25 Discontinued meloxicam (MOBIC) 15 mg tablet Take 1 [...] continues to follow with Dr. Mcqueen at [facility] Assessment & Plan (04/17/2023 8:16 PM CDT): Patient is following with bone metabolism hit [facility]. Has parathyroidectomy scheduled with Dr. Hernandez on [...] Pepcid Assessment & Plan (02/06/2021 11:54 AM TRAFFIC SIGN SUPERVISOR): Continue Pepcid p.r.n. he OA (osteoarthritis) 02/06/2021 Assessment & Plan (02/06/2021 11:53 AM TRAFFIC SIGN SUPERVISOR): Continue Mobic p.r.n. Fracture of right wrist 06/09/2020 Arthritis of carpometacarpal (CMC) joint of left thumb 09/24/2019 Arthritis of carpometacarpal (CMC) joint of righ t thumb 09/24/2019 Kidney stone 08/19/2019 Overview (08/19/2019): Continue per Dr. Xavier. Assessment & Plan (08/19/2019 8:49 PM CDT): Continue per Dr. Xavier Angiomyolipoma of left kidney 08/16/2019 Overview (08/01/2023): Incidental finding 03/2019 CT in [place] (kidney stones) 4.1 x 3.2 cm mid [...] PM CDT): Incidental finding 03/2019 CT in [place] (kidney stones) 4.1 x 3.2 cm mid left kidney. Plan to repeat screening (Dr. Xavier will order) Unsure if this was done so will try to track down and if has not been done by next visit will consider rechecking imaging for stability Assessment & Plan (08/19/2019 8:48 PM CDT): Incidental finding 03/2019 CT in [place] (kidney stones) 4.1 x 3.2 cm mid [...] D. Assessment & Plan (01/29/2021 2:10 PM TRAFFIC SIGN SUPERVISOR): Patient used to be on 5000 to 23549 international units vitamin D /day She has been off treatment for 6 weeks. Vitamin D level is normal at 58 on 01/22/21 - stay off vitamin D for now. Assessment & Plan (12/15/2020 3:30 PM TRAFFIC SIGN SUPERVISOR): Patient has been on and off Vitamin [...] years. Assessment & Plan (01/29/2021 2:12 PM TRAFFIC SIGN SUPERVISOR): Patient gives history of Osteopenia She was on Fosamax for about 1 year in 2019 She had bone density today for follow up Assessment & Plan (08/19/2019 8:32 PM CDT): Encourage calcium, vitamin D and weight bearing exercise to maintain the good bone strength. Continue Fosamax Assessment & Plan (09/18/2018 8:48 AM CDT): Managed by TRENCH DIGGER HELPER Dr. Sorenson. On Fosamax Grief 09/15/2018 Assessment & Plan (09/18/2018 8:47 AM CDT): Patient is adjusting. About 9 Months out from her husbands . Situational stress 09/15/2018 Assessment & Plan (02/04/2019 3:03 PM TRAFFIC SIGN SUPERVISOR): Discussed considering medication---as may be contributing to [...] readings. Assessment & Plan (02/06/2021 11:52 AM TRAFFIC SIGN SUPERVISOR): Bp is stable/in acceptable range for any co-morbidities. Encouraged to limit sodium intake and exercise for weight control. Stable with amlodipine 2.5 mg daily Assessment & Plan (01/04/2021 10:03 PM TRAFFIC SIGN SUPERVISOR): Bp is stable/in acceptable range for any co-morbidities. Encouraged to limit sodium intake and exercise for weight control. Start amlodipine 2.5 mg 1 daily. Insert drug follow-up in 2-3 weeks to recheck blood pressure. Assessment & Plan (08/19/2019 8:42 PM CDT): Stable. Continue to monitor. Assessment & Plan (02/04/2019 3:02 PM TRAFFIC SIGN SUPERVISOR): bp is still upper normal but not [...] 024 Assessment & Plan (03/31/2023 7:51 AM TRAFFIC SIGN SUPERVISOR): Weight/BMI is in healthy range. Continue healthy [...] screenings. Assessment & Plan (02/06/2021 11:52 AM TRAFFIC SIGN SUPERVISOR): Encouraged healthy lifestyle, good nutrition and exercise. Encouraged Calcium and Vitamin D and weight bearing exercise for bone health. Reviewed immunizations Reviewed age appropirate screenings. Breast cancer screening by mammogram 02/06/2021 05/14/2022 Assessment & Plan (02/06/2021 11:52 AM TRAFFIC SIGN SUPERVISOR): Mammogram order provided Leg cramps 01/04/2021 04/22/2024 Assessment & Plan (01/04/2021 10:03 PM TRAFFIC SIGN SUPERVISOR): Check labs BMI 22.0-22.9, adult 12/16/2020 023 Assessment & Plan (12/16/2020 7:35 AM TRAFFIC SIGN SUPERVISOR): Weight/BMI is in healthy range. Continue healthy [...] visit. Assessment & Plan (01/29/2021 2:09 PM TRAFFIC SIGN SUPERVISOR): History of mild hypercalcemia in 2019 Calcium [...] visit. Assessment & Plan (01/04/2021 10:03 PM TRAFFIC SIGN SUPERVISOR): Continue to monitor per Dr. Diaz Assessment & Plan (12/15/2020 3:28 PM TRAFFIC SIGN SUPERVISOR): History of mild hypercalcemia in 2019 Calcium [...] 04/22/2024 Assessment & Plan (01/04/2021 10:03 PM TRAFFIC SIGN SUPERVISOR): Continue the Pepcid Assessment & Plan (12/15/2020 3:32 PM TRAFFIC SIGN SUPERVISOR): Chronic- related to food, but can be [...] 021 Assessment & Plan (04/16/2020 7:50 AM TRAFFIC SIGN SUPERVISOR): Weight/BMI is in healthy range. Continue healthy [...] workup. Assessment & Plan (02/04/2019 3:05 PM TRAFFIC SIGN SUPERVISOR): Probable carpal tunnel-- Start with cockup splint. If sxs persist will consider nerve conduction vs referral to hand specialist. Start Mobic BMI 23.0-23.9, adult 09/18/2018 021 Assessment & Plan (08/19/2019 8:42 PM CDT): Weight/BMI is in healthy range. Continue healthy lifestyle to maintain. Assessment & Plan (01/29/2019 8:37 AM TRAFFIC SIGN SUPERVISOR): Weight/BMI is in healthy range. Continue healthy [...] Department Care Team Description 10/19/2024 Orders Only [facility] [address] [place] [phone] Provider, MD Miguel 10/11/2024 10:00 AM CDT Office Visit [facility] Medicine [address] [place] [address] [place] [phone] Tania Ware PA Annual physical exam (Primary Dx); Angiomyolipoma of left kidney; Hypertension, essential; Gastroesophageal reflux disease without esophagitis; Primary osteoarthritis of hand, unspecified laterality; Seasonal allergic rhinitis, unspecified trigger; Primary hyperparathyroidism; Mixed hyperlipidemia; BMI 22.0-22.9, adult 10/09/2024 Orders Only [facility] Health Information Management [address] [place] [address] Scanning, Provider from Last 3 Months Immunizations [...] Yenni Linares (J&J) SARS-CoV-2 Vaccination 01/02/2021, 04/11/2020 [email or web address] Sars-Cov-2 Bivalent V accination (12+ YRS) 11/13/2021 [...] Cadence Santana Mental illness Maternal Grandmother Cadence Santana Breast cancer Mother Elza Max Family history of malignant neoplasm of breast [...] Santana Mother's Sister Alive Paternal Grandmother Gretta Dimmett Alive Sister 1 Frances Alive Sister 2 [...] on file Legal Sex Female 5:45 AM TRAFFIC SIGN SUPERVISOR Gender Identity Female 12/08/2020 6:21 AM [...] Completed 04/16/2024 Medical Devices Implanted Type Area Grievance Manager Device Identifier Shelf Expiration Date Model / Serial / Lot Knee Replacement Knee Pins And Plates Foot Pins And Plates Wrist [employer] Compression Ft 2.5mm 18mm Compression Self Tap Cannulated Hex 1.5 [id number] - [id number] Implanted:Qty: 1 on 12/22/2021 by Nathan Castillo MD at [facility] Left: Middle Finger [employer] [id number] [...] Final Result * SCAN - LABS (10/09/2024) Provider Scanning Final Result * Screening Mammogram [...] Bone mineral density was performed on a [employer] Discovery Densitometer. Based on machine cross-calibration and [...] by the International Society of Clinical Densitometry. [id number] us Chris Mcqueen MD IMG DXA PROCEDURES Final Result * HM COLONOSCOPY (12/04/2021) us Bruce Phan MD HEALTH MAINTENANCE Edited Res ult - Final from Last 3 Months or Most Recently Relevant to Health Maintenance Insurance [employer] MEDICARE GOLD AETNA MEDICARE GOLD AETNA MEDICARE GOLD Advance Directives For more information, please contact: [phone] * Full Code (Latest Code Status on File) Date Activated Date Inactivated Comments 04/14/2023 12:48 PM 04/15/2023 4:05 PM Care Teams Clerk Guide Relationship Specialty Start Date End Date Tania Ware PA [address] [place] [address] PCP - General Internal Medicine 06/29/18 Chris Mcqueen MD [address] [place] [address] Referring Physician Bone Health 11/18/22 Aziza Saucedo MD [address] [place] [address] Surgeon Medical Oncology 10/14/23
--- OUTSIDE RECORDS SUMMARY | 2024-11-07 12:18 | XMS_ITS | Encounter Summary ---
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
[2024-11-07 13:05] LABS: Hematocrit 41.6 % (37.0-47.0); Hemoglobin 13.3 g/dL (12.0-15.0); Immature Granulocyte Percent A 0.3 % (0-0.5); Lymphocytes Absolute Auto 2.19 K/mm3 (0.9-3.2); Mean Corpuscular HGB Conc 32.0 g/dl (32-36); Mean Corpuscular Hemoglobin 31.2 pg (26-34); Mean Corpuscular Volume 97.7 fl (80-100); Nucleated Red Blood Cells Absolute Auto 0.000 K/mm3 (0.0-0.012); Nucleated Red Blood Cells Perc 0.0 % (0.0-0.2); Platelet Count Result 245 k/mm3 (150-375); Red Blood Count 4.26 M/mm3 (4.2-5.4); White Blood Count 7.1 K/mm3 (4.5-10.0)
[2024-11-07 13:21] LABS: Albumin Level 4.5 g/dL (3.5-5.1); Glucose 91 mg/dL (65-110)
[2024-11-07 14:15] LABS: MRSA (PCR) NOT DETECTED (NOT DETECTE)
[2024-11-07 18:27] LABS: Hemoglobin A1C 5.4 % (<5.7)
== END 2024-11-07 11:49 | disposition home or self-care (01) ==
LOC: ANHSURGERY 11:52
PROVIDERS: PCP Physician Assistant; Visit Provider Orthopaedic Surgery
DX: M17.11 Unilateral primary osteoarthritis, right knee (principal); Z01.818 Encounter for other preprocedural examination
CPT/HCPCS: 80307; 82040; 82947; 83036; 85025; 87641

== ENCOUNTER 2024-11-27 00:34 | Day surgery (SDC) | payer MEDICARE, SELFPAY ==
--- NOTE | 2024-11-07 11:51 | PC.NURSE ---
[facility] has started construction of its new state of the art ER which will open Spring 2026. With this, we anticipate parking may be a challenge for some our surgical patients and families. Parking spaces are limited but are available for all Surgical, obstetrics, and ER patients sharing this lot. If you arrive and find you are having a hard time finding a parking space, please note that we understand the challenges, please drive around the hospital and park near Hospital Entrance 1. When you enter this entrance, you can ask a volunteer to direct or take you back to the surgical waiting area to check in. We appreciate everyone?s understanding of these expected challenges while we build for your future. Report to the Outpatient Waiting Room, entrance under the green pavilion located off [address], at time 8:30 am on date __11/27/24 . Planned Procedure Time: __10:30 am .? Time changes happen often and if your time is changed the preop area will call you the afternoon before. - You and your visitor will be asked to self-screen and do not enter if you have any COVID symptoms. Please call surgeon if you need to reschedule. - A mask is optional within the hospital at this time. Patients may have clear liquids (water, carbonated beverages, clear teas, apple juice) until 3 hours prior to surgery( 7:30 am) with a maximum of 20 ounces. - No food from midnight until time of surgery and no smoking, or chewing tobacco (or any form of nicotine). No chewing gum, candy or mints. Take only the following medications with a SIP of water on the morning of surgery: ____AMLODIPINE DO NOT STOP ANY OF YOUR OTHER PRESCRIPTION MEDICATIONS PRIOR TO SURGERY EXCEPT THE FOLLOWING Hold all vitamins and supplements for 3 days per anesthesiologist.LAST DOSE 11/23/24 Medications to discontinue per physician MELOXICAM HOLD 7 DAYS PRE OP PER DR FRANKLIN Date to take last dose__11/19/24 Please no make-up, nail azeri, hairspray, perfume, deodorant, or body powder the day of surgery.? No jewelry (including any body piercings) or valuables the day of surgery, leave them at home.? Please take a shower or bath the night before, or the morning of, surgery with an antibacterial soap.? Wear comfortable, loose fitting clothing.? Children are encouraged to wear pajamas. - Jewelry must be removed prior to entering the operating room.? Rings and piercings that are not removed may be cut off. - The hospital will not accept responsibility for valuables.? - Please leave all valuables, including medications, at home the day of surgery. If you are going home after surgery, a licensed regional refrigerated cdl truck driver must drive you home.? - NO public transportation without another adult if you receive anesthesia. - We recommend that an adult stay with you for 24 hours following discharge. - We also recommend that you do not drive, make important decision, drink alcoholic beverages, or take any drugs that were not prescribed by your health care provider for at least 24 hours after your discharge time. For Pediatric surgeries, we recommend two adults accompany the child home. Follow any additional instructions given to you from your surgeon. verbal and written instructions given to ___PATIENT and asked if any additional questions and then verbalized understanding. Patient advised to call surgeon office or pre surgery nurse liaison [phone] if any additional questions.
[2024-11-07 11:55] VITALS: BMI 22.8
[2024-11-07 12:31] VITALS: BP 126/78; PULSE 65; RESP 18; TEMP 36.6; O2SAT 100
[2024-11-27] VITALS (14 sets, daily range): BP systolic 107–137; BP diastolic 59–79; PULSE 76–100; RESP 12–18; TEMP 36.1–37.5; O2SAT 92–100
--- NOTE | ~2024-11-27 | XR_ITS ---
EXAMINATION: [id number], 11/27/2024 13:35 CDT HISTORY: POST OP RIGHT TKA COMPARISON: No comparisons available. Findings: No acute fracture or malalignment. Arthroplasty intact Soft tissues unremarkable. Impression: No acute fracture or malalignment. Reviewed, dictated and finalized at location P. Impression: No acute fracture or malalignment.
--- OUTSIDE RECORDS SUMMARY | 2024-11-27 00:38 | XMS_ITS | Encounter Summary ---
Author Organization [facility] Facility Care Team Providers Care Admissions Assistant Name Role Phone Tania Ware Primary Care Provider [phone]- [phone] Chris Mcqueen MD Unavailable [phone] TrotwoodAziza MD Unavailable [phone] Encounter Details Date Type Department Care Team (Latest Contact Info) Description 04/11/2018 Orders Only [facility] ProviderMiguel MD [address] [place] [address] Social History Tobacco Use Types Packs/Day Years Used Date Smoking Tobacco: Never Comments Unknown Sex and Gender Information Value Date Recorded Sex Assigned at Not on file Legal Sex Female 5:45 AM AQUACULTURIST Gender Identity Female 12/08/2020 6:21 AM CDT Sexual Orientation Straight 12/08/2020 6: 21 AM CDT documented as of this encounter Plan of Treatment Not on file documented as of this encounter Procedures Procedure Name Priority Date/Time Associated Diagnosis Comments PROCEDURE - RESULT 04/12/2018 12 :00 AM AQUACULTURIST documented in this encounter Results * PROCEDURE - RESULT (04/12/2018 12:00 AM AQUACULTURIST) Narrative 04/12/2018 12:00 AM AQUACULTURIST Ordered by an unspecified provider. us Historical Provider Final Res ult documented in this encounter Visit Diagnoses Not on filedocumented in this encounter Care Teams Admissions Assistant Relationship Specialty Start Date End Date Tania Ware PA [address] [place] [address] PCP - General Internal Medicine 06/29/18 Chris Mcqueen MD [address] [place] [address] Referring Physician [facility] 11/18/22 Aziza Saucedo MD [address] [place] [address] Surgeon Medical Oncology 10/14/23 documented as of this encounter
--- OUTSIDE RECORDS SUMMARY | 2024-11-27 00:38 | XMS_ITS | Clinical Summary ---
Author Organization [facility] Address [address] [facility] [place] [address] Care Team Providers Care Studio Camera Operator Name Role Phone Tania Ware PA-C Primary Care Provider [phone] Allergies Active Allergy Reactions Criticality Noted Date [...] on file Legal Sex Female 3:31 PM WHEELAGE CLERK Gender Identity Not on file Sexual Orientation [...] Most Recently Relevant to Health Maintenance Insurance [facility] BLUE ACCESS CHOICE Care Teams Studio Camera Operator Relationship Specialty Start Date End Date Tania Ware PA-C [address] [facility] [address] [place] [address] PCP - General Physician Rehab Care Assistant 03/30/18
--- OUTSIDE RECORDS SUMMARY | 2024-11-27 00:38 | XMS_ITS | Encounter Summary ---
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
--- OUTSIDE RECORDS SUMMARY | 2024-11-27 00:38 | XMS_ITS | Encounter Summary ---
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
--- OUTSIDE RECORDS SUMMARY | 2024-11-27 00:38 | XMS_ITS | Clinical Summary ---
Author Organization [facility] Address [address] [place] [address] Care Team Providers Care Thread Separator Name Role Phone Tania Ware Primary Care Provider [phone]- [phone] Chris Mcqueen MD Unavailable [phone] SherylAziza MD Unavailable [phone] Allergies Active Allergy Reactions Criticality Noted Date Comments Penicillins Unknown High 01/29/2015 As a child Sulfa (Sulfonamide Antibiotics) Rash Medium 03/11 Rash Medications famotidine (PEPCID) 20 mg tablet Take 1 tablet (20 mg total) by mouth 2 (two) times a day Active diphenhydrAMI NE-acetaminop hen (TYLENOL PM) 25-500 mg tablet Take 1 tablet by mouth nightly Active acetaminophen (TYLENOL) 500 mg tablet Take 1 tablet (500 mg total) by mouth as needed for pain Active amLODIPine (NORVASC) 5 mg tabletIndicat ions:Hyperten joby, essential Take 1 tablet (5 mg total) by mouth daily 90 tablet 1 04/17/19 25 Active meloxicam (MOBIC) 15 mg tablet Take 1 tablet by mouth once daily 90 tablet 10/10/[address] (PROTONIX) 40 mg EC tablet Take 1 tablet (40 mg total) by mouth daily 90 tablet 1 10/20/19 25 026 Active Additional Information Patient not taking.Reported on 11/13/2024 rosuvastatin (CRESTOR) 10 mg tablet Take 1 tablet (10 mg total) by mouth daily 11/26/19 25 Active rosuvastatin (CRESTOR) 10 mg tablet Take 1 tablet (10 mg total) by mouth daily 90 tablet 1 04/17/19 25 025 Discontinued rosuvastatin (CRESTOR) 10 mg tablet Take 1 tablet by mouth once daily 90 tablet 11/08/19 025 Discontinued(Re order) Active Problems Problem Noted Date Diagnosed Date [...] continues to follow with Dr. Mcqueen at [facility] Assessment & Plan (04/17/2023 8:16 PM CDT): Patient is following with bone metabolism hit [facility]. Has parathyroidectomy scheduled with Dr. Hernandez on [...] Pepcid Assessment & Plan (02/06/2021 11:54 AM LICENSED HOME INSPECTOR): Continue Pepcid p.r.n. he OA (osteoarthritis) 02/06/2021 Assessment & Plan (02/06/2021 11:53 AM LICENSED HOME INSPECTOR): Continue Isaias reina. Fracture of right wrist 06/09/2020 Arthritis of carpometacarpal (CMC) joint of left thumb 09/24/2019 Arthritis of carpometacarpal (CMC) joint of righ t thumb 09/24/2019 Kidney stone 08/19/2019 Overview (08/19/2019): Continue per Dr. Xavier. Assessment & Plan (08/19/2019 8:49 PM CDT): Continue per Dr. Xavier Angiomyolipoma of left kidney 08/16/2019 Overview (08/01/2023): Incidental finding 03/2019 CT in [place] (kidney stones) 4.1 x 3.2 cm mid [...] PM CDT): Incidental finding 03/2019 CT in [place] (kidney stones) 4.1 x 3.2 cm mid left kidney. Plan to repeat screening (Dr. Xavier will order) Unsure if this was done so will try to track down and if has not been done by next visit will consider rechecking imaging for stability Assessment & Plan (08/19/2019 8:48 PM CDT): Incidental finding 03/2019 CT in [place] (kidney stones) 4.1 x 3.2 cm mid [...] D. Assessment & Plan (01/29/2021 2:10 PM LICENSED HOME INSPECTOR): Patient used to be on 5000 to 87497 international units vitamin D /day She has been off treatment for 6 weeks. Vitamin D level is normal at 58 on 01/22/21 - stay off vitamin D for now. Assessment & Plan (12/15/2020 3:30 PM LICENSED HOME INSPECTOR): Patient has been on and off Vitamin [...] years. Assessment & Plan (01/29/2021 2:12 PM LICENSED HOME INSPECTOR): Patient gives history of Osteopenia She was on Fosamax for about 1 year in 2019 She had bone density today for follow up Assessment & Plan (08/19/2019 8:32 PM CDT): Encourage calcium, vitamin D and weight bearing exercise to maintain the good bone strength. Continue Fosamax Assessment & Plan (09/18/2018 8:48 AM CDT): Managed by [facility] Dr. Sorenson. On Fosamax Grief 09/15/2018 Assessment & Plan (09/18/2018 8:47 AM CDT): Patient is adjusting. About 9 Months out from her husbands . Situational stress 09/15/2018 Assessment & Plan (02/04/2019 3:03 PM LICENSED HOME INSPECTOR): Discussed considering medication---as may be contributing to [...] readings. Assessment & Plan (02/06/2021 11:52 AM LICENSED HOME INSPECTOR): Bp is stable/in acceptable range for any co-morbidities. Encouraged to limit sodium intake and exercise for weight control. Stable with amlodipine 2.5 mg daily Assessment & Plan (01/04/2021 10:03 PM LICENSED HOME INSPECTOR): Bp is stable/in acceptable range for any co-morbidities. Encouraged to limit sodium intake and exercise for weight control. Start amlodipine 2.5 mg 1 daily. Insert drug follow-up in 2-3 weeks to recheck blood pressure. Assessment & Plan (08/19/2019 8:42 PM CDT): Stable. Continue to monitor. Assessment & Plan (02/04/2019 3:02 PM LICENSED HOME INSPECTOR): bp is still upper normal but not [...] 024 Assessment & Plan (03/31/2023 7:51 AM LICENSED HOME INSPECTOR): Weight/BMI is in healthy range. Continue healthy [...] screenings. Assessment & Plan (02/06/2021 11:52 AM LICENSED HOME INSPECTOR): Encouraged healthy lifestyle, good nutrition and exercise. Encouraged Calcium and Vitamin D and weight bearing exercise for bone health. Reviewed immunizations Reviewed age appropirate screenings. Breast cancer screening by mammogram 02/06/2021 05/14/2022 Assessment & Plan (02/06/2021 11:52 AM LICENSED HOME INSPECTOR): Mammogram order provided Leg cramps 01/04/2021 04/22/2024 Assessment & Plan (01/04/2021 10:03 PM LICENSED HOME INSPECTOR): Check labs BMI 22.0-22.9, adult 12/16/2020 023 Assessment & Plan (12/16/2020 7:35 AM LICENSED HOME INSPECTOR): Weight/BMI is in healthy range. Continue healthy [...] visit. Assessment & Plan (01/29/2021 2:09 PM LICENSED HOME INSPECTOR): History of mild hypercalcemia in 2019 Calcium [...] visit. Assessment & Plan (01/04/2021 10:03 PM LICENSED HOME INSPECTOR): Continue to monitor per Dr. Diaz Assessment & Plan (12/15/2020 3:28 PM LICENSED HOME INSPECTOR): History of mild hypercalcemia in 2019 Calcium [...] 04/22/2024 Assessment & Plan (01/04/2021 10:03 PM LICENSED HOME INSPECTOR): Continue the Pepcid Assessment & Plan (12/15/2020 3:32 PM LICENSED HOME INSPECTOR): Chronic- related to food, but can be [...] 021 Assessment & Plan (04/16/2020 7:50 AM LICENSED HOME INSPECTOR): Weight/BMI is in healthy range. Continue healthy [...] workup. Assessment & Plan (02/04/2019 3:05 PM LICENSED HOME INSPECTOR): Probable carpal tunnel-- Start with cockup splint. If sxs persist will consider nerve conduction vs referral to hand specialist. Start Mobic BMI 23.0-23.9, adult 09/18/2018 021 Assessment & Plan (08/19/2019 8:42 PM CDT): Weight/BMI is in healthy range. Continue healthy lifestyle to maintain. Assessment & Plan (01/29/2019 8:37 AM LICENSED HOME INSPECTOR): Weight/BMI is in healthy range. Continue healthy [...] Encounters Date Type Department Care Team Description 11/13/2024 10:00 AM CDT Office Visit [address] [place] [phone] Tania Ware PA Flu vaccine need (Primary Dx); Preop examination 10/19/2024 Orders Only [address] [place] [phone] ProviderMiguel MD 10/11/2024 10:00 AM CDT Office Visit [address] [place] [phone] Tania Ware PA Annual physical exam (Primary Dx); Angiomyolipoma of left kidney; Hypertension, essential; Gastroesophageal reflux disease without esophagitis; Primary osteoarthritis of hand, unspecified laterality; Seasonal allergic rhinitis, unspecified trigger; Primary hyperparathyroidism; Mixed hyperlipidemia; BMI 22.0-22.9, adult 10/09/2024 Orders Only [facility] Health Information Management [address] [place] [address] Scanning, Provider from Last 3 Months Immunizations Immunization Administration Dates Next Due Influenza, Quadrivalent, Rec ombinant, Egg Free, Preservative Free, Intramuscular 12/05/2019,12/18/2017 Influenza, Quadrivalent, Spl it, Preservative Free, Intradermal 11/17/2015 Influenza, Quadrivalent, Spl it, Preservative Free, Intramuscular 11/30/2022,11/13/2018 Influenza, Trivalent, High D ose, Split, Preservative Free, Intramuscular 11/13/2024,12/07/2023 Influenza, Trivalent, IM (MDV) 01/06/2014,2011 Influenza, Trivalent, Preser vative Free, Intramuscular 11/20/2016 Influenza, Unspecified 03/10/2022(Deferr ed: Patient Refused),03/10/2021(Deferred: Patient Refused),11/19/2020,12/05/2019, 019 Milagros (J&J) SARS-CoV-2 Vaccination 01/02/2021, 04/11/2020 [employer] Sars-Cov-2 Bivalent V accination (12+ YRS) 11/13/2021 [...] cancer Maternal Grandfather Arthritis Maternal Grandmother Cadence Garza Max Mental illness Maternal Grandmother Cadence Garza Max Breast cancer Mother Elza Max Family history [...] Efraín Odom Maternal Grandfather Maternal Grandmother Cadence Garza Max Mother Elza Max Mother's Sister Alive Paternal Grandmother Gretta Dimmett Alive Sister 1 Frances Alive Sister 2 Frances Harrington Alive Social History Tobacco Use Types Packs/Day Years Used Date Smoking Tobacco: Former Cigarettes 0.3 6.9 0 03/21/1973 - 1980 Passive Smoke Exposure: Past Smokeless Tobacco: Former Tobacco Cessation:Counseling Given: Not Answered Alcohol Use Standard Drinks/Week Comments Yes 2 (1 standard drink = 0.6 oz pur e alcohol) PHQ-2 Answer Date Recorded PHQ-2 Total Score (If total score is 3 or more points, staff should administer the PHQ-9) 0 11/13/2024 AUDIT-C Answer Date Recorded Q1: How often do you have a drink containing alc ohol? 2-3 times a week 11/13/2024 Q2: How many drinks containi ng alcohol do you have on a typical day when you are drinking? 1 or 2 11/13/2024 Q3: How often do you have si x or more drinks on one occasion? Never 11/13/2024 Personal Safety Answer Date Recorded Have you ever been in or are you currently in a harmful physical or emotional relationship or is someone making you feel afraid or unsafe? Denies 04/14/2023 Comments No Sex and Gender Information Value Date Recorded Sex Assigned at Not on file Legal Sex Female 5:45 AM LICENSED HOME INSPECTOR Gender Identity Female 12/08/2020 6:21 AM CDT [...] Sign Reading Time Taken Comments Blood Pressure 138/82 11/13/2024 10:05 AM CDT Pulse 71 11/13/2024 10:05 AM CDT Temperature 36.7 C (98 F) 11/13/2024 10:05 AM CDT Respiratory Rate 18 06/27/2024 10:27 AM CDT Oxygen Saturation 98% 11/13/2024 10:05 AM CDT Inhaled Oxygen Concentration - - Weight 46.5 kg (102 lb 8 oz) 11/13/2024 10:05 AM CDT Height 149.9 cm (4' 11) 11/13/2024 10:05 AM CDT Body Mass Index 20.7 11/13/2024 10:05 AM CDT Plan of Treatment Health Maintenance Due Date Last Done Comments Hepatitis C Screening 1960 Hepatitis B Screening 1978 Covid-19 Vaccine (2024-2 6 season) 2024 11/13/2021, 01/02/2021, 04/11/2020 Osteoporosis Screening-Bone Density Scan 11/01/2024 11/01/2022, 01/29/2021 Breast Cancer Screening-Mammogram 06/27/2025 06/27/2024, 06/22/2023, 04/20/2022, Additional history exists Well Visit 65+ 10/11/2025 10/11/2024, 04/07, 08/02/2023, Additional history exists Depression Screening 11/13/2025 11/13/2024, 10/11/2024, 04/16/2024, Additional history exists Fall Risk Assessment 11/13/2025 11/13/2024, 10/11/2024, 04/16/2024, Additional history exists DTaP/Tdap/Td Vaccine (2 - Td or Tdap) 08/15/2029 08/16/2019 Colon Cancer Screening-Colonoscopy 12/05/2031 12/04/2021 Zoster Vaccine Completed 09/18/2018, 07/13/2018 Colon Cancer Screening-DNA Stool Discontinued 12/04/2021, 11/04/2021, 10/08/2018, Additional history exists Pneumococcal vaccine 65+ Completed 04/16/2024 Influenza Vaccine Completed 11/13/2024, , 11/30/2022, Additional history exists Medical Devices Implanted Type Area Tower Hoist Operator Device Identifier Shelf Expiration Date Model / Serial / Lot Knee Replacement Knee Pins And Plates Foot Pins And Plates Wrist [employer] Compression Ft 2.5mm 18mm Compression Self Tap Cannulated Hex 1.5 [id number] - [id number] Implanted:Qty: 1 on 12/22/2021 by Nathan Castillo MD at [facility] Left: Middle Finger [employer] AR-[id number] / / Procedures Procedure Name Priority Date/Time Associated Diagnosis Comments ECG 12-LEAD Routine 11/13/2024 10:30 AM CDT Preop examination ELECTROCARDIOGRAM REPORT Routine 11/13/[address] ABDOMEN PELVIS W WO CONTRAST Schedule [...] Recently Relevant to Health Maintenance Results * ECG 12 lead (11/13/2024 10:30 AM CDT) us Tania DOMINGUEZ ECG ORDERABLES Final Resu lt * Electrocardiogram Report (11/13/2024) 11/13/2024 Narrative Tania Ware PA - 11/13/2024 10:46 AM CDT Dx: Pre-operative exam 59bpm Sinus bradycardia Voltage criteria for LVH - voltage criteria w/0 ST/T abnormality may be normal. Similar reading to 03/2023 EKG on chart. us Tania DOMINGUEZ ECG ORDERABLES Final Resu lt * CT Abdomen Pelvis W WO Contrast (10/19/2024 9:21 AM CDT) Anatomical Region Laterality Modality Body N/A Computed Tomogra phy us Historical Provider IMPiper CT PROCEDURES Edited Result - Final * [...] Bone mineral density was performed on a [employer] Away Discovery Densitometer. Based on machine cross-calibration and [...] by the International Society of Clinical Densitometry. [id number] Chris Mcqueen MD IMG DXA PROCEDURES Final Result * HM COLONOSCOPY (12/04/2021) us Bruce Phan MD HEALTH MAINTENANCE Edited Res ult - Final from Last 3 Months or Most Recently Relevant to Health Maintenance Insurance [employer] MEDICARE GOLD AETNA MEDICARE GOLD AETNA MEDICARE GOLD Advance Directives For more information, please contact: [phone] * Full Code (Latest Code Status on File) Date Activated Date Inactivated Comments 04/14/2023 12:48 PM 04/15/2023 4:05 PM Care Teams Thread Separator Relationship Specialty Start Date End Date Tania Ware PA [address] [place] [address] PCP - General Internal Medicine 06/29/18 Chris Mcqueen MD [address] [place] [address] Referring Physician Bone Health 11/18/22 Aziza Sauecdo MD [address] [place] [address] Surgeon Medical Oncology 10/14/23
--- OUTSIDE RECORDS SUMMARY | 2024-11-27 00:38 | XMS_ITS | Encounter Summary ---
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
--- OUTSIDE RECORDS SUMMARY | 2024-11-27 00:38 | XMS_ITS | Encounter Summary ---
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
--- NOTE | 2024-11-27 07:17 | WPDHPUPDATE1 ---
History and Physical Update Update Date/Time: 11/27/24 07:17 History and Physical has been reviewed, including an updated exam of the patient. There are NO changes in the patient's condition. Risks, benefits, and alternatives have been discussed and questions answered. Patient agrees to proceed with procedure.
[2024-11-27] MEDS: ACETAMINOPHEN 500 MG TABLET 1000 MG PO (08:55)
[2024-11-27] MEDS: LACTATED RINGERS 1,000 ML 30 ML IV CONT ×2 (09:00→13:16)
[2024-11-27] MEDS: TRANEXAMIC ACID 1,000MG/ISO100 1,000 MG/100 ML BAG 200 MG IVPB (10:50)
--- NOTE | 2024-11-27 10:55 | WPDANESEPPF ---
Anes - Initial Pre Proc Eval Procedure: Operation Date: 11/27/24 10:30 Proposed Procedures p Right Total Knee Arthroplasty - Jose Win MD Date/Time: 11/27/24 10:55 Surgeon: Jose Win MD Pre Op Diagnosis: prim oa rt knee Patient Data Age: 64 Gender: F Height: 1.42 m Weight: 46.2 kg Last Vital Signs Temp 97.3 F L 11/27/24 08:30 Pulse 76 11/27/24 08:30 Resp 16 11/27/24 08:30 BP 122/73 11/27/24 08:30 Pulse Ox 97 11/27/24 08:30 O2 Del Method Room Air 11/27/24 08:30 Allergies Allergy/AdvReac Type Severity Reaction Status Date / Time Penicillins Allergy Severe Anaphylaxis Verified 11/27/24 08:35 Sulfa (Sulfonamide Allergy Severe Hives Verified 11/27/24 08:35 Antibiotics) Home Medications ?Medication ?Instructions ?Recorded ?Confirmed ?Type amlodipine 2.5 mg tablet 2.5 mg PO DAILY 11/19/21 11/07/24 History famotidine 10 mg tablet (Pepcid AC) 10 mg PO DAILY 11/19/21 11/07/24 History meloxicam 15 mg tablet 15 mg PO DAILY 11/19/21 11/27/24 History amlodipine 5 mg tablet 5 mg PO DAILY 12/23/23 11/27/24 History famotidine 20 mg tablet (Pepcid) 20 mg PO PRN PRN heartburn 12/23/23 11/27/24 History meloxicam 7.5 mg tablet 7.5 mg PO DAILY 12/23/23 11/07/24 History rosuvastatin 10 mg tablet 10 mg PO DAILY 12/23/23 11/27/24 History ascorbic acid (vitamin C) 1,000 mg 1 g PO DAILY 11/07/24 11/27/24 History tablet (C-1000) diphenhydramine HCl 25 mg capsule 25 mg PO HS INSOMNIA 11/07/24 11/27/24 History (Allergy (diphenhydramine)) lactobacillus combination no.4 3 3,000 mmu cells PO DAILY 11/07/24 11/27/24 History billion cell capsule (Probiotic) pantoprazole 40 mg tablet,delayed 40 mg PO .DIALY 11/07/24 11/07/24 History release aspirin 81 mg tablet,delayed 81 mg PO BID 14 days #28 tabs 11/27/24 Rx release oxycodone-acetaminophen 5 mg-325 1 tablet PO Q6H PRN pain #28 tabs 11/27/24 Rx mg tablet prednisone 5 mg tablet 5 mg PO DAILY 3 weeks #21 tabs 11/27/24 Rx Laboratory Tests 11/27/24 08:54 Blood Type O Positive Antibody Screen Negative Patient hx anesthesia problems: none Family hx anesthesia problems: none Results Review: All pre-operative results and documents have been reviewed as part of the pre-operative evaluation. [facility] Past Medical History Medical History Scoliosis Hyperparathyroidism GERD (gastroesophageal reflux disease) Hyperlipidemia Onychomycosis Hypertension Hypertension Hyperlipidemia Thyroid disease Scoliosis Surgical History Surgical History History of colonoscopy History of thyroidectomy (~2023) Family History Family History Mother Thyroid disorder Father Hypertension Heart disease Diabetes mellitus Other Anxiety Breast cancer Depression Lung cancer Social History Social History Smoking packs per day: 0.5 Smoking cigarettes per day: 10.0 Years smoked: 3 Smoking pack-years: 1.50 Smoking status: Former smoker Tobacco type: cigarettes Alcohol intake: current Drinks per week: 7 Substance use: never Substance use type: does not use Do You Feel Safe in your Home?: Yes Lack of Transportation: No Lack of Food: Never True Current Housing: I Have Housing Concerned About Future Housing: No Difficulty Paying Gas/Electric Bills: No Difficulty Paying for Meds: No Currently Unemployed: No Education: High School Diploma/GED Difficulty w/ Childcare or Family Care: No Living arrangements: with family Spiritual care concerns: No Anes - Eval Final PreProcedure Day of Procedure 11/27/24 10:55 Patient weight: normal Heart: regular rate and rhythm Lungs: clear to auscultation Airway: Mallampati scale class II Neurological: alert and oriented Last oral intake: >/= 8 hours ASA classification: III Emergent: no Anesthetic plan: proceed Anesthesia type and monitoring: general LMA and standard monitoring Results Review: All pre-operative results and documents have been reviewed as part of the pre-operative evaluation. Informed Consent: The patient's anesthetic plan and its attendant risks and benefits were discussed with the patient/family/POA. Questions were solicited and answers provided to the satisfaction of the patient/family/POA.
[2024-11-27] MEDS: ceFAZolin 2 GM in SODIUM CHLORIDE 0.9% IV 50 ML 100 ML IVPB ×2 (11:02→17:10)
[2024-11-27] MEDS: SODIUM CHLORIDE 0.9% IV 37.7 ML, MORPHINE SULFATE INJ (*CRX) 2 MG, ROPivacaine HCL 1% 2... INFILTRATE (11:40)
[2024-11-27] MEDS: TRANEXAMIC ACID 1,000 MG/10 ML AMPUL 1000 MG IV PUSH (12:58)
--- NOTE | 2024-11-27 14:52 | ADMGEN ---
This patient, Azalia Henley, was admitted to -. Patient/family oriented to hospital policies and general routines including ID bracelet, bed and alarms, visiting hours, pain management, procedures, bathroom and other care routines, personal items, smoking policy, room service/diet, and visiting hours. Information on how to activate the Rapid Response Team has been discussed. Patient/Family are encouraged to report perceived risks to care and to ask questions if they do not understand what they are told or what they should do.
[2024-11-27] MEDS: oxyCODONE/ACETAMINOPHEN (*CRX) 10-325 MG TABLET 1 TAB PO (17:09)
[2024-11-27] MEDS: ACETAMINOPHEN 325 MG TABLET 650 MG PO (17:10)
[2024-11-27] MEDS: ASPIRIN 81 MG ENTERIC TABLET PO (20:27)
[2024-11-27] MEDS: SENNA/DOCUSATE SODIUM TABLET 2 TAB PO (20:27)
[2024-11-27] MEDS: MELOXICAM 7.5 MG TABLET PO (20:27)
[2024-11-28] MEDS: ACETAMINOPHEN 325 MG TABLET 650 MG PO ×3 (00:30→11:21)
[2024-11-28] MEDS: ceFAZolin 2 GM in SODIUM CHLORIDE 0.9% IV 50 ML 100 ML IVPB ×2 (03:09→11:21)
[2024-11-28 04:05] VITALS: BP 104/55; PULSE 64; RESP 18; TEMP 36.6; O2SAT 95
[2024-11-28 05:20] LABS: Hematocrit 33.6 % (37.0-47.0); Hemoglobin 11.0 g/dL (12.0-15.0); Immature Granulocyte Percent A 0.5 % (0-0.5); Lymphocytes Absolute Auto 1.48 K/mm3 (0.9-3.2); Mean Corpuscular HGB Conc 32.7 g/dl (32-36); Mean Corpuscular Hemoglobin 30.8 pg (26-34); Mean Corpuscular Volume 94.1 fl (80-100); Nucleated Red Blood Cells Absolute Auto 0.000 K/mm3 (0.0-0.012); Nucleated Red Blood Cells Perc 0.0 % (0.0-0.2); Platelet Count Result 253 k/mm3 (150-375); Red Blood Count 3.57 M/mm3 (4.2-5.4); White Blood Count 14.4 K/mm3 (4.5-10.0)
[2024-11-28 05:41] LABS: Anion Gap 7 mmol/L (4-12); Blood Urea Nitrogen 12 mg/dL (7-17); Calcium 8.2 mg/dL (8.4-10.2); Carbon Dioxide 23 mmol/L (22-30); Chloride 106 mmol/L (98-107); Estimated Glomerular Filt Rate > 60; Glucose 99 mg/dL (65-110); Potassium 3.9 mmol/L (3.4-5.0); Sodium 136 mmol/L (137-145)
[2024-11-28] MEDS: MELOXICAM 7.5 MG TABLET PO (08:47)
[2024-11-28] MEDS: PANTOPRAZOLE 40 MG TABLET PO (08:47)
[2024-11-28] MEDS: SENNA/DOCUSATE SODIUM TABLET 2 TAB PO (08:47)
[2024-11-28] MEDS: ROSUVASTATIN 10 MG TABLET PO (08:48)
[2024-11-28] MEDS: ASPIRIN 81 MG ENTERIC TABLET PO (08:48)
--- NOTE | 2024-11-28 10:04 | W.PM.PROC2 ---
Procedure Note - Detailed Date of Procedure 11/27/24 Pre-op Diagnosis Right knee degenerative arthritis. Post-op Diagnosis Same Procedure Performed Calipered, kinematically aligned total knee replacement right knee. Surgeon Jose Win MD Training Facilitator Raisa Robbins PA-C Anesthesia General Findings According to the calipered kinematic alignment principles, the knee was balanced by the following verification checks incorporating 6 caliper measurements, using an insert goniometer to select the insert thickness, and adjusting the tibial resection following the kinematic alignment algorithm (see figure 160.10 published in [employer] chapter on kinematic alignment total knee arthroplasty.) The steps verified the femoral and tibial components were kinematically aligned coincident to the patient's pre arthritic joint lines, which closely restored the [place] tibial compartment forces and ligament laxities without ligament release. The [employer] RidleyriKA knee, designed specifically for kinematic alignment, fit optimally. Very small stature. No soft tissue releases. Severe medial femur bone wear. 0.5mm less resection taken. The record of verification checks were documented and scanned into the chart. Distal Femoral Resection: Distal Medial 5.5 mm(cartilage worn), Distal Lateral 8 mm Target thickness of 8mm Unworn, 6mm Worn (No Cartilage). Posterior Femoral Resection: Posterior Medial 5 mm(cartilage worn), Posterior Lateral 7 mm. Target thickness of 7mm Unworn, 5mm Worn (No Cartilage). Description of Procedure General anesthesia was administered. A well-padded tourniquet was placed high on the thigh. The limb was prepped and draped in the usual sterile fashion. The limb was exsanguinated and the tourniquet inflated to 300 mmHg during exposure and cementation. A longitudinal incision was created over the midline of the knee. Sharp dissection was taken through subcutaneous tissues. Electrocautery was used for hemostasis. A subvastus approach to the knee joint was performed. The ACL, anterior horns of the menisci, and fat pad were excised, and a subperiosteal dissection was carried along the posterior medial border of the tibia. Starting midway between the top of the notch in the anterior femoral cortex, I drilled a 9 mm diameter hole parallel to the anterior cortex to minimize flexion of the femoral component and promote patella tracking. I verified the existence of a 5-10 mm bone bridge between the posterior aspect of the hole and the anterior limit of the intercondylar notch. An intraosseous positioning jose juan was inserted 10 cm into the femur perpendicular to the distal joint line and parallel to the anterior cortex. I used a distal femoral referencing guide that compensated 2 mm when the cartilage was worn on the distal medial femoral condyle, and 2 mm when the cartilage was worn on the distal lateral femoral condyle. The basis for setting the distal and posterior femoral resection guide is knowing that the varus and valgus grade II to IV Kellegren-Leo osteoarthritic knees have negligible bone wear at 0? and 90? and that the mean full-thickness cartilage wear approximates 2 mm. I measured the thickness of distal femoral resections with a caliper to +/- 0.5 mm. The thickness of each resection was adjusted to match the thickness of the respective condyle of the femoral component within 0.5 mm of target after compensating for cartilage wear and kerf. When the distal resection was 1-2 mm too thin, a recut guide was used to adjust the cut. When the distal resection was too thick, a 1 or 2 mm thick washer was fixed to the back of the 4-in-1 chamfer block to jeanine a corrective gap between the femoral component and distal femur. I set posterior femoral referencing guide at 0? orientation to position the pin holes for the 4 in 1 chamfer block. The josefina wing measured the width of the distal femoral resection and selected the size of the 4 in 1 chamfer block and femoral component. The AP sizer confirmed the size. I measured the thickness of the posterior femoral resections with a caliper before making the anterior and chamfer cuts. I adjusted the thicknesses of each resection to match the thickness of the respective condyle of the femoral component within +/-0.5 mm after compensating for cartilage wear and curve. When a posterior resection femoral resection was 1-2 mm too thick or thin a corrective correction was made by shifting or rotating the 4 in 1 chamfer block as needed. The chamfer block was secured in the correct position with compression screws. The anterior and chamfer femoral resections were made. These caliper measurements and corrections verified that the femoral component was set coincident with the patient's pre-arthritic distal and posterior femoral joint lines. I removed all the medial and lateral femoral and tibial osteophytes to restore the pre arthritic length of the medial and lateral collateral ligaments. I magali AP lines along the major axis of the lateral tibial plateau in between the tibial spines which identified the flexion extension plane of the knee. A conventional extramedullary tibial resection guide was applied to the ankle. An josefina wing was placed medially in the saw slot. The varus valgus angle of the tibial resection guide was adjusted until the guide paralleled the proximal tibial articular surface after compensating for cartilage and bone wear. The slope of flexion extension angle of the tibial resection guide was adjusted until the josefina wing paralleled the slope of the medial tibia after compensating for wear. The AP axis of the tibial resection guide was adjusted parallel to the two lines. The proximal tibia was resected, partially releasing the insertion of the posterior cruciate ligament. The thickness of the medial and lateral lateral tibial condyle was measured at the base of the tibial spines. I visually verified the slope of the medial border of the resection was parallel to the patient's pre arthritic slope after compensating for cartilage and bone wear. I removed the remnants of the posterior horns of the menisci and posterior osteophytes and cauterized the inferior lateral genicular vessels. The Aquamantys bipolar device was also used to for additional hemostasis. When the knee had a preoperative flexion contracture of 20? or more I teased the capsule off the posterior femur with a curved 3 quarter-inch osteotome. I administered the posterior femoral periosteal injection by delivering 10 cc using a 20 gauge spinal needle at the most medial and 10 cc at the most lateral femoral spur surface which reduced the risk of injury to the posterior neurovascular structures. I followed 6 options in a decision tree to fine tune the varus valgus and posterior slope orientation of the tibial component to restore the patient's pre arthritic tibial joint line and limb alignment. First, I adjusted the varus-valgus orientation of the proximal tibia resection working in 1 degree to 2 degree increments until there was negligible medial and lateral lift off of the distal femoral and proximal tibial resection from the spacer block during a varus valgus laxity assessment in extension. I selected the largest anatomic shape trial tibial base plate that fit within the cortical boundary of the proximal tibial resection. The base plate was best fit parallel to the cortical boundary which set the Internal-external orientation of the anterior to posterior and medial to lateral positions. The best fit method set the AP axis of the tibial base plate and insert parallel to the flexion extension plane of the pre arthritic knee. I pinned the trial tibial base plate, prepared the cruciate slot, and fixed the base plate to the tibia with the cruciate stem. I inserted the trial femoral component. The knee was placed in full extension. Varus valgus laxity is of the knee with trial components were assessed. When asymmetric laxity was observed a 1-2 degree varus or valgus recut guide was used to fine tune the tibial resection until the laxity was 1 degree or less in full extension like the [place] knee. The following steps determined the optimal insert thickness within +/-1 mm. First I inserted an insert goniometer that matched the thickness of the spacer block. I reduced the patella and then with the knee in maximum extension, I verified the knee hyperextended a few degrees and had negligible varus valgus laxity, like the pre arthritic knee. Next, I measured the external tibial orientation which was the angle the insert goniometer intersected the sagittal line on the medial condyle of the femoral trial component. Then with the knee in 15-30 degrees flexion I verified a 3-4 mm gap in the lateral compartment and no gap in the medial compartment during a 2nd varus valgus laxity test. Next, I placed the knee in 90? of flexion and the foot resting on the operating table and measured the internal tibial orientation. I repeated the steps until I identified the insert thickness that provided the highest external tibia orientation in extension and the highest internal tibial orientation at 90? flexion without anterior lift-off of the insert from the tibial base plate. The insert with this thickness was implanted. I applied a posterior drawer test with the tibia distracted by gravity and verified no posterior subluxation of the tibia relative to the femur. The thickness of the [place] patella was measured with a caliper. The patella was resected using the oscillating saw. The best fitting anatomic patella button was selected. The fixation holes were drilled. When the patella and patella buttons combined thickness was thicker than the [place] patella, the patella was recut. The patella remained centered on the trochlea and tracked well throughout the entire arc of flexion and extension. I used pulse lavage to clean the bony surfaces of debris and dried bone. I cemented the tibial, femoral, and patellar components using 1 bag of methylmethacrylate with Gentamycin, then rechecked the stability at full extension, 15-30 degrees, and 90? flexion and verified pentecostal of the entire arc of motion of the knee. The circulating nurse confirmed the sponge and needle counts were correct. I used pulse lavage to rinse the joint and wound. The extensor mechanism was closed with interrupted #1 Vicryl suture and #1 running Stratafix suture. The subcutaneous layer was closed with interrupted #1 Vicryl suture followed by 2-0 Stratafix and 3-0 Stratafix. Steri-Strips placed on the skin. Silver impregnated occlusive dressing applied to the wound. A light gauze wrap and Suman bandage were placed. The patient was transferred to the recovery room in stable condition. There were no complications. Physician political science research assistant, Raisa Robbins PA-C, required for surgery; including patient positioning, draping, tissue retraction, maintaining instrument position, cement removal, wound closure, and dressing placement. Implants Medacta GMK spheriKA Femoral component SpheriKA size 1+, tibial component size 1, vitamin-E flex insert, thickness 10mm, Elisabeth patella implant size 1. Estimated Blood Loss 50 Drains No Pathology None sent Complications No immediate complications Condition Stable Disposition PACU [facility] Billing Surgery - Charge Forward: Surgery Billing
[2024-11-28 10:06] VITALS: BP 102/60; PULSE 74; RESP 16; TEMP 37; O2SAT 100
[2024-11-28] MEDS: oxyCODONE/ACETAMINOPHEN (*CRX) 10-325 MG TABLET 1 TAB PO (11:21)
== END 2024-11-28 12:25 | disposition home or self-care (01) ==
LOC: ANHSURGERY 08:21 → ANH2MED 14:53
PROVIDERS: Physician Assistant Surgical; PCP Physician Assistant; Visit Provider Orthopaedic Surgery
PROC: (CPT 27447; principal; 2024-11-27 10:30)
DX: M17.11 Unilateral primary osteoarthritis, right knee (principal); Z87.891 Personal history of nicotine dependence
CPT/HCPCS: 27447; 36415; 73560; 80048; 85025; 86850; 86900; 86901; 97110; 97116; 97161; 97165; 97530; C1776; J0690; A9270; C1713; J0166; J1100; J1171; J1885; J2003; J2250; J2270; J2405; J2704; J2795; J3010; J3290; J7120; J7512